=== PATIENT | female | born 1960 | race Caucasian/White ===

== ENCOUNTER → 2016-10-19 | Day surgery (SDC) | payer BC ==
[2016-10-05 09:12] VITALS: Ht 165.1 cm; Wt 76.4 kg
[~2016-10-19] VITALS: Ht 165.1 cm; Wt 76.4 kg
[~2016-10-19] MED LIST: 500ML BSS 0.3ML EPI 1:1000PF IRRIG ONE; ACETAMINOPHEN 325 MG TAB PO PRN; AMVISC PLUS 0.8ML SYRINGE INT OCU ONE; ASCA500 PO; ATOR10TA82 PO; ATROPINE SULFATE 0.1 MG/ML 5ML SYR IV PRN; BSS FLUSH ONE; CALC500C70 PO; CHOL100010 PO; CLON0.5T3 PO; ENDOCOAT 0.85ML SYRINGE INT OCU ONE; EpHEDrine SULFATE INJ 50 MG/ML AMP IV PRN; EpINEphrine INJ 1MG/ML AMP 1 MG/ML AMP ONE; FENTANYL CITRATE INJ 50 MCG/1 ML 2 ML VIAL ONE; LACTATED RINGER'S 1000ML 500 ML IV SCH; LIDOCAINE 4% OP SOLN DROP CHARGE ONE; LIDOCAINE 4% OP SOLN DROP CHARGE OPR SCH; LIDOCAINE HCL 1% MPF 2 ML VIAL ONE; LISI-461 PO; MIDAZOLAM HCL 1 MG/ML 2ML VIAL ONE; MIX: 4ML BSS 1ML EPI 1:1000 PF TOP ONE; MOXIFLOXACIN OPH SOLN PER DROP CHARGE ONE; MULT-506 PO; ONDANSETRON INJ 2 MG/ML 2 ML VIAL ONE; PANT40TA PO; POVIDONE-IODINE OP SOLN 30 ML BTL ONE; PRED1SUS OPR; PROPARACAINE 0.5% OP SOLN PER DROP CHARGE OPR SCH; RXC5 PO; TOBRAMYCIN/DEXAMETHASONE OPH OINT PER APPLN CHARGE ONE
[2016-10-19] MEDS: PHENYLEPHRINE HCL 2.5% OP SOLN PER DROP CHARGE OPR SCH ×3 (06:38→06:48)
[2016-10-19] MEDS: TROPICAMIDE 1% OP SOLN PER DROP CHARGE OPR SCH ×3 (06:39→06:49)
[2016-10-19] MEDS: CYCLOPENTOLATE HCL 1% OP SOLN PER DROP CHARGE OPR SCH ×3 (06:40→06:50)
[2016-10-19] MEDS: MOXIFLOXACIN OPH SOLN PER DROP CHARGE OPR SCH ×3 (06:41→06:51)
--- NOTE | 2016-10-19 06:43 | History & Physical Bridge - [place] ---
H&P Re-Evaluation Bridge Note: I have examined the patient, reviewed the History & Physical and in the interval since the performance of the History & Physical I have noted the following changes of clinical significance: No changes noted. Right eye cataract surgery
--- NOTE | 2016-10-19 07:29 | [facility] Post Operative Brief Note ---
Immediate Operative Summary Operative Date Oct 19, 2016. Pre-Operative Diagnosis Cataract Right Eye Post-Operative Diagnosis Same Procedure(s) Performed Right Cataract Phacoemulsification With Intraocular Lens Implant Surgeon Dr. Wilson Jack Spooler Tender Surgeon(s) None Estimated Blood Loss 0 Findings right cataract Specimens None Complication(s) None Disposition
--- NOTE | 2016-10-19 07:30 | [facility] Operative Report ---
Operative Report Date of Service Oct 19, 2016. Operative Report Phaco with monofocal IOL DATE OF OPERATION: 10/19/16 PREOPERATIVE DIAGNOSIS: Senile nuclear cataract, right eye POSTOPERATIVE DIAGNOSIS: Senile nuclear cataract, right eye PROCEDURE PERFORMED: Phacoemulsification with intraocular lens implantation, right eye SURGEON: Dr. Rogerio Wilson ANESTHESIA: Topical with 1% intracameral lidocaine and monitored anesthesia care COMPLICATIONS: None DESCRIPTION OF PROCEDURE: After positively identifying the patient both verbally and by wristband in the preoperative area, the right eye was marked as the operative eye. The patient was then brought back to the operating room by the anesthesia and nursing staff where they were given a drop of Lidocaine and betadine into the operative eye. They were then sterilely prepped and draped in the standard fashion typical for ophthalmic surgery. Steri-strips were placed along the upper eyelids to keep the lashes back, and a lid speculum was placed into the operative eye. At this point, a documented time out was performed with members of the ophthalmology, nursing, and anesthesia staffs all agreeing upon the correct patient, correct location for surgery, correct procedure, and correct type and power of intraocular lens to be implanted. The microscope was then swung into position. First, a paracentesis wound was made using a sideport blade. Then, in sequence, 1% preservative-free lidocaine followed by Endocoat viscoelastic was injected into the anterior chamber. Next , the main incision was made with a keratome blade in triplanar fashion. A sharp cystotome was introduced into the eye and used to create a tear in the anterior capsule, which was directed into a continuous curvilinear capsulorrhexis using Utrata forceps. Hydrodissection was then performed with BSS on a flat-tip cannula. Next, the phacoemulsification handpiece was introduced into the eye and used to remove the nucleus in a ryhxyj-sbz-szhnwjp fashion. This was done without complication and then the irrigation-aspiration handpiece was introduced into the eye and used to remove all remaining cortical and epinuclear material. Amvisc was then injected into the anterior chamber as well as into the capsular bag and using the lens injector system, an MX60 22.5 D lens, serial number [id number], and expiration date 06/2019 was injected into the capsular bag and rotated into the correct position. Next, the irrigation- aspiration handpiece was used to remove all remaining Amvisc. BSS was used to hydrate the main wound, and then BSS was injected into the paracentesis site to reach physiologic pressure and then the main wound was checked and found to be watertight. The patient was given drops of Vigamox and Tobradex ointment into the operative eye, and then the surrounding area was cleaned and dried. A clear plastic shield was placed over the eye and the patient was then sat up and taken from the operating room by the anesthesia staff having tolerated the procedure well and suffering no complications. DISPOSITION: The patient was returned to the recovery room in stable condition. I attest to the content of the Intraoperative Record and any orders documented therein. Any exceptions are noted below.
--- NOTE | 2016-10-19 07:31 | Discharge Instructions-SurgCtr ---
Discharge Instructions Date of Service Oct 19, 2016. Visit Reason for Visit: Cataract Right Eye Discharge Discharge Diagnosis / Problem: right cataract Discharge Goals Goal(s): Decrease discomfort, Improve function Activity Recommendations Activity Limitations: as noted below Anesthesia . Post Anesthesia Instructions: If you have had General Anesthesia or IV Sedation: * Do not drive today. * Resume driving when surgeon permits. * Do not make important decisions or sign legal documents today. * Call surgeon for: 1. Temperature elevations greater than 101 degrees F. 2. Uncontrollable pain. 3. Excessive bleeding. 4. Persistent nausea and vomiting. 5. Medication intolerance (nausea, vomiting or rash). * For nausea and vomiting use only clear liquids such as: tea, soda, bouillon until nausea subsides, then gradually increase diet as tolerated. * If you have any concerns or questions, call your surgeon's office. If physician is unavailable and it is an emergency, call 911 or go to the nearest emergency room. . Instructions / Follow-Up Instructions / Follow-Up ACTIVITY RECOMMENDATIONS: * Light activities. * You may walk outside, read, watch television. * You may notice redness on the white part of the eye and some blurry vision - this is normal. MEDICATIONS: Resume previous medications unless instructed otherwise by your surgeon. Start all eye drops at 9:30 am today: * Eye drops (today): Prednisone - one drop in operative eye every 2 hours while awake Ofloxacin - one drop in operative eye every 2 hours while awake SPECIAL CARE INSTRUCTIONS: * Tape plastic shield over eye to sleep at night. Call your doctor at with any concerns or problems. FOLLOW UP VISIT: Follow-up with Dr Wilson at [facility] as scheduled. Diet Recommendations Home Diet: no limitations Procedures Procedures Performed: Right Cataract Phacoemulsification With Intraocular Lens Implant Pending Studies Studies pending at discharge: no Medical Emergencies . Who to Call and When: Medical Emergencies: If at any time you feel your situation is an emergency, please call 911 immediately. . Non-Emergent Contact Non-Emergency issues call your: Surgeon . . "Provider Documentation" section prepared by Rogerio Wilson.
[2016-10-19 07:34] VITALS: TEMP 37.2
[2016-10-19 07:51] VITALS: BP 124/82; PULSE 75; O2SAT 99
--- NOTE | 2016-10-19 08:00 | Anesthesiology Progress Note ---
Anesthesia Post Op Note Date & Time Oct 19, 2016 at 08:00 Vital Signs Pain Intensity: 1 Vital Signs Past 12 Hours Date Time Temp Pulse Resp B/P Pulse Ox O2 Delivery O2 Flow Rate FiO2 10/19/16 07:51 75 16 124/82 99 Room Air 10/19/16 07:34 37.2 89 14 134/75 98 Room Air 10/19/16 06:28 36.7 76 16 118/82 98 Room Air Notes Mental Status: alert / awake / arousable, participated in evaluation Pt Amnestic to Procedure: Yes Nausea / Vomiting: adequately controlled Pain: adequately controlled Airway Patency, RR, SpO2: stable & adequate BP & HR: stable & adequate Hydration State: stable & adequate Anesthetic Complications: no major complications apparent
== END | disposition home or self-care (01) ==
LOC: X.SURG 06:05
PROVIDERS: ATTEND Ophthalmology
DX: H25.11 Age-related nuclear cataract, right eye (principal); E78.00 Pure hypercholesterolemia, unspecified; I10 Essential (primary) hypertension; Z90.710 Acquired absence of both cervix and uterus; Z87.891 Personal history of nicotine dependence

== ENCOUNTER → 2016-11-02 | Day surgery (SDC) | payer BC ==
[2016-10-27 12:20] VITALS: Ht 165.1 cm; Wt 76.4 kg
[~2016-11-02] VITALS: Ht 165.1 cm; Wt 76.4 kg
[~2016-11-02] MED LIST changes: -EpHEDrine SULFATE INJ 50 MG/ML AMP IV PRN; +LIDOCAINE 4% OP SOLN DROP CHARGE OPL SCH; -LIDOCAINE 4% OP SOLN DROP CHARGE OPR SCH; -ONDANSETRON INJ 2 MG/ML 2 ML VIAL ONE; +PROPARACAINE 0.5% OP SOLN PER DROP CHARGE OPL SCH; -PROPARACAINE 0.5% OP SOLN PER DROP CHARGE OPR SCH
[2016-11-02] MEDS: PHENYLEPHRINE HCL 2.5% OP SOLN PER DROP CHARGE OPL SCH ×3 (06:31→06:41)
[2016-11-02] MEDS: TROPICAMIDE 1% OP SOLN PER DROP CHARGE OPL SCH ×3 (06:32→06:42)
[2016-11-02] MEDS: MOXIFLOXACIN OPH SOLN PER DROP CHARGE OPL SCH ×3 (06:34→06:44)
[2016-11-02] MEDS: CYCLOPENTOLATE HCL 1% OP SOLN PER DROP CHARGE OPL SCH ×3 (06:34→06:44)
--- NOTE | 2016-11-02 06:40 | History & Physical Bridge - [place] ---
H&P Re-Evaluation Bridge Note: I have examined the patient, reviewed the History & Physical and in the interval since the performance of the History & Physical I have noted the following changes of clinical significance: No changes noted. Left eye cataract surgery.
--- NOTE | 2016-11-02 07:24 | [facility] Post Operative Brief Note ---
Immediate Operative Summary Operative Date November 02, 2016. Pre-Operative Diagnosis Left Eye Cataract Post-Operative Diagnosis Same Procedure(s) Performed Left Cataract Phacoemulsification With Intraocular Lens implant Surgeon Dr Wilson Denture Contour Wire Specialist Surgeon(s) None Estimated Blood Loss 0ml Findings left cataract Specimens None Complication(s) None Disposition
[2016-11-02 07:25] VITALS: TEMP 36.7
--- NOTE | 2016-11-02 07:25 | [facility] Operative Report ---
Operative Report Date of Service November 02, 2016. Operative Report Phaco with monofocal IOL DATE OF OPERATION: 11/02/16 PREOPERATIVE DIAGNOSIS: Senile nuclear cataract, left eye POSTOPERATIVE DIAGNOSIS: Senile nuclear cataract, left eye PROCEDURE PERFORMED: Phacoemulsification with intraocular lens implantation, left eye SURGEON: Dr. Rogerio Wilson ANESTHESIA: Topical with 1% intracameral lidocaine and monitored anesthesia care COMPLICATIONS: None DESCRIPTION OF PROCEDURE: After positively identifying the patient both verbally and by wristband in the preoperative area, the left eye was marked as the operative eye. The patient was then brought back to the operating room by the anesthesia and nursing staff where they were given a drop of Lidocaine and betadine into the operative eye. They were then sterilely prepped and draped in the standard fashion typical for ophthalmic surgery. Steri-strips were placed along the upper eyelids to keep the lashes back, and a lid speculum was placed into the operative eye. At this point, a documented time out was performed with members of the ophthalmology, nursing, and anesthesia staffs all agreeing upon the correct patient, correct location for surgery, correct procedure, and correct type and power of intraocular lens to be implanted. The microscope was then swung into position. First, a paracentesis wound was made using a sideport blade. Then, in sequence, 1% preservative-free lidocaine followed by Endocoat viscoelastic was injected into the anterior chamber. Next , the main incision was made with a keratome blade in triplanar fashion. A sharp cystotome was introduced into the eye and used to create a tear in the anterior capsule, which was directed into a continuous curvilinear capsulorrhexis using Utrata forceps. Hydrodissection was then performed with BSS on a flat-tip cannula. Next, the phacoemulsification handpiece was introduced into the eye and used to remove the nucleus in a gbynma-njz-dwschkx fashion. This was done without complication and then the irrigation-aspiration handpiece was introduced into the eye and used to remove all remaining cortical and epinuclear material. Amvisc was then injected into the anterior chamber as well as into the capsular bag and using the lens injector system, an MX60 22.0 D lens, serial number [id number], and expiration date 05/2019 was injected into the capsular bag and rotated into the correct position. Next, the irrigation- aspiration handpiece was used to remove all remaining Amvisc. BSS was used to hydrate the main wound, and then BSS was injected into the paracentesis site to reach physiologic pressure and then the main wound was checked and found to be watertight. The patient was given drops of Vigamox and Tobradex ointment into the operative eye, and then the surrounding area was cleaned and dried. A clear plastic shield was placed over the eye and the patient was then sat up and taken from the operating room by the anesthesia staff having tolerated the procedure well and suffering no complications. DISPOSITION: The patient was returned to the recovery room in stable condition. I attest to the content of the Intraoperative Record and any orders documented therein. Any exceptions are noted below.
--- NOTE | 2016-11-02 07:26 | Discharge Instructions-SurgCtr ---
Discharge Instructions Date of Service November 02, 2016. Visit Reason for Visit: Left Cataract Discharge Discharge Diagnosis / Problem: left cataract Discharge Goals Goal(s): Decrease discomfort, Improve function Activity Recommendations Activity Limitations: as noted below Anesthesia . Post Anesthesia Instructions: If you have had General Anesthesia or IV Sedation: * Do not drive today. * Resume driving when surgeon permits. * Do not make important decisions or sign legal documents today. * Call surgeon for: 1. Temperature elevations greater than 101 degrees F. 2. Uncontrollable pain. 3. Excessive bleeding. 4. Persistent nausea and vomiting. 5. Medication intolerance (nausea, vomiting or rash). * For nausea and vomiting use only clear liquids such as: tea, soda, bouillon until nausea subsides, then gradually increase diet as tolerated. * If you have any concerns or questions, call your surgeon's office. If physician is unavailable and it is an emergency, call 911 or go to the nearest emergency room. . Instructions / Follow-Up Instructions / Follow-Up ACTIVITY RECOMMENDATIONS: * Light activities. * You may walk outside, read, watch television. * You may notice redness on the white part of the eye and some blurry vision - this is normal. MEDICATIONS: Resume previous medications unless instructed otherwise by your surgeon. Start all eye drops at 9:30 am today: * Eye drops (today): Prednisone - one drop in operative eye every 2 hours while awake Ofloxacin - one drop in operative eye every 2 hours while awake SPECIAL CARE INSTRUCTIONS: * Tape plastic shield over eye to sleep at night. Call your doctor at with any concerns or problems. FOLLOW UP VISIT: Follow-up with Dr Wilson at [facility] office as scheduled. Diet Recommendations Home Diet: no limitations Procedures Procedures Performed: Left Cataract Phacoemulsification With Intraocular Lens implant Pending Studies Studies pending at discharge: no Medical Emergencies . Who to Call and When: Medical Emergencies: If at any time you feel your situation is an emergency, please call 911 immediately. . Non-Emergent Contact Non-Emergency issues call your: Surgeon . . "Provider Documentation" section prepared by Rogerio Wilson. .
[2016-11-02 07:41] VITALS: BP 110/73; PULSE 78; O2SAT 99
--- NOTE | 2016-11-02 07:44 | Anesthesia Progress Nt - [facility] ---
Anesthesia Post Op Note Date & Time November 02, 2016 at 07:44 Vital Signs Pain Intensity: 0 Vital Signs Past 12 Hours Date Time Temp Pulse Resp B/P Pulse Ox O2 Delivery O2 Flow Rate FiO2 11/02/16 07:41 78 16 110/73 99 Room Air 11/02/16 07:25 36.7 85 14 124/73 99 Room Air 11/02/16 06:24 36.5 77 20 121/84 97 Room Air Notes Mental Status: alert / awake / arousable, participated in evaluation Pt Amnestic to Procedure: Yes Nausea / Vomiting: adequately controlled Pain: adequately controlled Airway Patency, RR, SpO2: stable & adequate BP & HR: stable & adequate Hydration State: stable & adequate Anesthetic Complications: no major complications apparent
== END | disposition home or self-care (01) ==
LOC: X.SURG 06:08
PROVIDERS: ATTEND Ophthalmology
DX: H25.12 Age-related nuclear cataract, left eye (principal); I10 Essential (primary) hypertension; Z88.1 Allergy status to other antibiotic agents; Z90.89 Acquired absence of other organs; Z98.890 Other specified postprocedural states; Z87.891 Personal history of nicotine dependence

== ENCOUNTER 2016-12-09 05:55 | Inpatient (IN) | payer BC ==
[2016-11-15 10:21] VITALS: BMI 29.0
--- NOTE | 2016-11-15 10:56 | PAT Medication Instructions ---
Service Date November 15, 2016. Current Home Medication List Ascorbic Acid (Vitamin C), 1 TAB PO QAM Atorvastatin (Lipitor), 10 MG PO QPM Calcium/Vitamin D (Os-Johan 500 Plus D), 1 TAB PO QAM Cholecalciferol (Vitamin D), 1,000 INTER.UNIT PO QAM Clonazepam (Klonopin), 0.5 TAB PO HS Lisinopril (Zestril), 10 MG PO QAM Pantoprazole (Protonix), 40 MG PO QAM Prednisolone Acetate (Ophth) (Omnipred), 1 DROPS OPR TID Medication Instructions For Your Scheduled Surgery - Hold the following medications the morning of surgery: Lisinopril (Zestril), 10 MG PO QAM Calcium/Vitamin D (Os-Johan 500 Plus D), 1 TAB PO QAM Cholecalciferol (Vitamin D), 1,000 INTER.UNIT PO QAM Ascorbic Acid (Vitamin C), 1 TAB PO QAM - Take the following medications the morning of surgery with a sip of water: Prednisolone Acetate (Ophth) (Omnipred), 1 DROPS OPR TID Pantoprazole (Protonix), 40 MG PO QAM - Take the following medications as scheduled the night before surgery: Prednisolone Acetate (Ophth) (Omnipred), 1 DROPS OPR TID Clonazepam (Klonopin), 0.5 TAB PO HS Atorvastatin (Lipitor), 10 MG PO QPM If you have any questions please call us at [phone] (Yesenia Young PA-C) or [phone] or [phone]
--- NOTE | 2016-11-15 11:30 | DIAGNOSTIC IMAGING REPORT ---
CHEST PREADMISSION(PA/LAT) CLINICAL HISTORY: PAT preoperative evaluation COMPARISON STUDY: No previous studies for comparison. FINDINGS: The bones soft tissues and hemidiaphragms are normal. The cardiomediastinal silhouette is normal. The lungs are clear. The pulmonary vasculature is normal. IMPRESSION: Negative chest. Electronically signed by: Leo Sierra M.D. 11/15/2016 11:28 AM Dictated Date/Time: 11/15/2016 11:28 AM
[2016-11-15 11:39] LABS: BASO % 0.8 %; BASO ABS # 0.05 K/uL (0-0.2); COMPLETE YES; EOS % 1.4 %; HEMATOCRIT 41.3 % (37-47); IG% 0.3 %; LYMPH % 34.1 %; LYMPH ABS # 2.19 K/uL (1.2-3.4); MEAN CELL VOLUME 92.2 fL (80-100); MEAN CORPUSCULAR HEMOGLOBIN 30.1 pg (25-34); MEAN CORPUSCULAR HGB CONC 32.7 g/dl (32-36); MEAN PLATELET VOLUME 10.6 fL (7.4-10.4); MONO % 6.4 %; PLATELET COUNT 260 K/uL (130-400); RED BLOOD COUNT 4.48 M/uL (4.2-5.4); WHITE BLOOD COUNT 6.42 K/uL (4.8-10.8)
[2016-11-15 11:47] LABS: BUN/CREATININE RATIO 26.3 (10-20); CREATININE 0.63 mg/dl (0.60-1.20); POTASSIUM 4.4 mmol/L (3.5-5.1)
[2016-11-15 11:48] LABS: CALCIUM 9.4 mg/dl (8.5-10.1)
[2016-11-15 12:03] LABS: URINE APPEARANCE CLEAR (CLEAR); URINE BILIRUBIN NEG (NEG); URINE COLOR YELLOW; URINE NITRITE NEG (NEG); UROBILINOGEN NEG (NEG)
[2016-11-15 12:10] LABS: MANUAL MICROSCOPIC REQUIRED? NO; REVIEW REQ? NO
[2016-12-09] VITALS (13 sets, daily range): BP systolic 126–157; BP diastolic 81–95; PULSE 76–103; TEMP 36.4–36.8; O2SAT 96–99; Ht 165.1 cm; Wt 81.6 kg
[~2016-12-09] VITALS: Ht 165.1 cm; Wt 81.6 kg
[~2016-12-09 05:55] MED LIST changes: -500ML BSS 0.3ML EPI 1:1000PF IRRIG ONE; -ACETAMINOPHEN 325 MG TAB PO PRN; -AMVISC PLUS 0.8ML SYRINGE INT OCU ONE; -ATROPINE SULFATE 0.1 MG/ML 5ML SYR IV PRN; -BSS FLUSH ONE; -ENDOCOAT 0.85ML SYRINGE INT OCU ONE; -EpINEphrine INJ 1MG/ML AMP 1 MG/ML AMP ONE; -FENTANYL CITRATE INJ 50 MCG/1 ML 2 ML VIAL ONE; -LACTATED RINGER'S 1000ML 500 ML IV SCH; -LIDOCAINE 4% OP SOLN DROP CHARGE ONE; -LIDOCAINE 4% OP SOLN DROP CHARGE OPL SCH; -LIDOCAINE HCL 1% MPF 2 ML VIAL ONE; -MIDAZOLAM HCL 1 MG/ML 2ML VIAL ONE; -MIX: 4ML BSS 1ML EPI 1:1000 PF TOP ONE; -MOXIFLOXACIN OPH SOLN PER DROP CHARGE ONE; -MULT-506 PO; -POVIDONE-IODINE OP SOLN 30 ML BTL ONE; -PROPARACAINE 0.5% OP SOLN PER DROP CHARGE OPL SCH; -RXC5 PO; -TOBRAMYCIN/DEXAMETHASONE OPH OINT PER APPLN CHARGE ONE
[2016-12-09] MEDS ORDERED: CEFAZOLIN 2000 MG/60 ML D5W IV SCH (06:00)
[2016-12-09] MEDS ORDERED: LACTATED RINGER'S 1000ML 1,000 ML IV SCH (06:00)
[2016-12-09] MEDS ORDERED: MULT-506 PO (06:22)
[2016-12-09] MEDS ORDERED: MIDAZOLAM HCL 1 MG/ML 2ML VIAL ONE (06:36)
[2016-12-09] MEDS ORDERED: FENTANYL CITRATE INJ 50 MCG/1 ML 2 ML VIAL ONE ×3 (06:36→09:24)
[2016-12-09] MEDS ORDERED: BACITRACIN 50000 UNIT VIAL ONE (07:11)
--- NOTE | 2016-12-09 07:14 | History & Physical Bridge Note ---
H&P Re-Evaluation Bridge Note: I have examined the patient, reviewed the History & Physical and in the interval since the performance of the History & Physical I have noted the following changes of clinical significance: No changes noted
--- NOTE | 2016-12-09 07:15 | History and Physical ---
History & Physical Date Dec 09, 2016. Chief Complaint neck and arm pain History of Present Illness The patient is a 56 year old female with complaints of Additional History Hepatic Disease: No Endocrine Disorder: No Kidney Disease: No Hypertension: No Heart Disease: No Bleeding Tendencies: No Infectious Diseases: No Allergies Coded Allergies: Terconazole (Unverified Allergy, Unknown, rash, 12/09/16) PER RECORDS Ampicillin (Verified Adverse Reaction, Mild, GI SYMPTOMS vomiting, ) Hydrocodone (Verified Adverse Reaction, Mild, SEVERE NAUSEA AND VOMITING, 12/09/16) PT STATES SHE DOES TOLERATE OXYCODONE Home Medications Scheduled Ascorbic Acid (Vitamin C), 1 TAB PO QAM Atorvastatin (Lipitor), 10 MG PO QPM Cholecalciferol (Vitamin D), 1,000 INTER.UNIT PO QAM Clonazepam (Klonopin), 0.5 TAB PO HS Lisinopril (Zestril), 10 MG PO QAM Multivitamin (Multivitamin), 1 TAB PO DAILY Pantoprazole (Protonix), 40 MG PO QAM Physical Examination Skin: warm/dry, no rash Eyes: normal inspection, EOMI, sclerae normal ENT: normal ENT inspection, pharynx normal Head: normocephalic, atraumatic Neck: supple, no adenopathy, trachea midline Respiratory/Chest: lungs clear, normal breath sounds, no respiratory distress Cardiovascular: regular rate, rhythm, no edema, no murmur Abdomen / GI: normal bowel sounds, non tender Back: normal inspection Extremities: normal inspection, normal range of motion Neurologic/Psych: no motor/sensory deficits, alert, normal reflexes, oriented x 3 Diagnosis cervical stenosis Plan of Treatment corpectomy C5 acdf C6-7
[2016-12-09] MEDS ORDERED: ACETAMINOPHEN 1000 MG/100 ML IV IV ONE (07:46)
[2016-12-09] MEDS ORDERED: KETAMINE HCL INJ 50 MG/ML 10 ML VIAL ONE (08:03)
[2016-12-09] MEDS ORDERED: HYDROmorphone INJ 2 MG/ML SYR/VIAL ONE (08:03)
[2016-12-09] MEDS ORDERED: METOCLOPRAMIDE HCL INJ 5 MG/ML 2 ML VIAL ONE (08:06)
[2016-12-09] MEDS ORDERED: GLYCOPYRROLATE INJ 0.2 MG/ML VIAL ONE (08:06)
[2016-12-09] MEDS ORDERED: ONDANSETRON INJ 2 MG/ML 2 ML VIAL ONE (08:06)
[2016-12-09] MEDS ORDERED: ROCURONIUM BROMIDE 10 MG/ML 5 ML VIAL ONE (08:06)
[2016-12-09] MEDS ORDERED: NEOSTIGMINE METHYLSULFATE 1 MG/ML 10ML VIAL ONE (08:06)
[2016-12-09] MEDS ORDERED: PROPOFOL IV EMULSION 10 MG/ML 20 ML VIAL IV ONE (08:06)
[2016-12-09] MEDS ORDERED: DiphenhydrAMINE HCL 50 MG/ML VIAL ONE (08:06)
[2016-12-09] MEDS ORDERED: RANITIDINE HCL 25 MG/ML INJ ONE (08:06)
[2016-12-09] MEDS ORDERED: DEXAMETHASONE SOD INJ 4 MG/ML VIAL ONE (08:06)
[2016-12-09] MEDS ORDERED: LIDOCAINE HCL 2% 2 ML VIAL (20MG/ML) ONE (08:06)
[2016-12-09] MEDS ORDERED: PHENYLEPHRINE 100MCG/ML 5ML SYR ONE (08:08)
[2016-12-09] MEDS ORDERED: EpHEDrine SULFATE INJ 50 MG/ML AMP IV PRN (08:15)
[2016-12-09] MEDS ORDERED: PROMETHAZINE HCL INJ 6.25 MG in SODIUM CHLORIDE 0.9% 50ML 50 ML IV PRN (08:15)
[2016-12-09] MEDS ORDERED: HYDROmorphone INJ 1 MG/ML SYR IV PRN ×2 (08:15→09:30)
[2016-12-09] MEDS ORDERED: METOCLOPRAMIDE HCL INJ 5 MG/ML 2 ML VIAL IV PRN (08:15)
[2016-12-09] MEDS ORDERED: ATROPINE SULFATE 0.1 MG/ML 5ML SYR IV PRN (08:15)
[2016-12-09] MEDS ORDERED: ONDANSETRON INJ 2 MG/ML 2 ML VIAL IV PRN (08:15)
[2016-12-09] MEDS ORDERED: SODIUM CHLORIDE 0.9% PF 50 ML VIAL ONE (08:29)
[2016-12-09] MEDS ORDERED: FLOSEAL HEMOSTATIC MATRIX 5ML TOP ONE (09:26)
--- NOTE | 2016-12-09 09:27 | [facility] Post Operative Brief Note ---
Immediate Operative Summary Operative Date Dec 09, 2016. Pre-Operative Diagnosis Cervical Spinal Stenosis Post-Operative Diagnosis Cervical Spinal Stenosis Procedure(s) Performed cervical fusion Surgeon Dr. Martin Tile Setter Apprentice Surgeon(s) Angel Davis PA-C Estimated Blood Loss 75ml Findings stenosis Specimens none per surgeon
[2016-12-09] MEDS ORDERED: ACETAMINOPHEN IV 1,000 MG in EMPTY BAG 0 ML IV PRN (09:30)
[2016-12-09] MEDS ORDERED: DO NOT ADMINISTER FLU VACCINE PRN ×3 (09:30)
[2016-12-09] MEDS ORDERED: NALOXONE HCL 0.4 MG/1 ML VIAL/CARP IV PRN (09:30)
[2016-12-09] MEDS ORDERED: DEXAMETHASONE INJ 8 MG in SYRINGE 0 ML IV PRN (09:30)
[2016-12-09] MEDS ORDERED: MAGNESIUM HYDROXIDE SUSP 30 ML UDC PO PRN (09:30)
[2016-12-09] MEDS ORDERED: RACEPINEPHRINE 2.25% NEBU SOLN 0.5 ML VIAL INH PRN (09:30)
[2016-12-09] MEDS ORDERED: LORAZEPAM INJ 0.5 MG in SYRINGE 0.75 ML IV PRN (09:30)
[2016-12-09] MEDS ORDERED: DO NOT ADMINISTER PNEUMOCOCCAL VACCINE PRN ×2 (09:30)
[2016-12-09] MEDS ORDERED: LORAZEPAM 0.5 MG TAB PO PRN (09:30)
[2016-12-09] MEDS ORDERED: DiphenhydrAMINE HCL 50 MG/ML VIAL IV PRN (09:30)
[2016-12-09] MEDS: FENTANYL CITRATE INJ 50 MCG/1 ML 2 ML VIAL IV PRN ×2 (09:50→09:55)
--- NOTE | 2016-12-09 10:31 | DIAGNOSTIC IMAGING REPORT ---
CERVICAL 2 OR 3 VIEWS CLINICAL HISTORY: C5 Corpectomy; C6-C7 ACDF COMPARISON STUDY: No previous studies for comparison. Fluoroscopy time: 14.2 seconds. FINDINGS: These images demonstrate a C5 corpectomy with anterior discectomy and fusion at C6-C7. There are 2 screws within the C4, C6 and C7 vertebra. IMPRESSION: Fluoroscopic images demonstrating a C5 corpectomy with C6-C7 discectomy and C4-C7 anterior fusion. Electronically signed by: Shaheen Elam M.D. 12/09/2016 10:29 AM Dictated Date/Time: 12/09/2016 10:28 AM
--- NOTE | 2016-12-09 10:54 | Anesthesiology Progress Note ---
Anesthesia Post Op Note Date & Time Dec 09, 2016 at 10:54 Vital Signs Pain Intensity: 2 Vital Signs Past 12 Hours Date Time Temp Pulse Resp B/P (MAP) Pulse Ox O2 Delivery O2 Flow Rate FiO2 12/09/16 10:33 104 16 12/09/16 10:33 106 16 99 12/09/16 10:32 154/83 12/09/16 10:28 101 14 99 12/09/16 10:28 102 14 12/09/16 10:27 152/78 12/09/16 10:23 93 13 12/09/16 10:23 93 13 98 12/09/16 10:22 151/98 12/09/16 10:18 102 14 98 12/09/16 10:18 105 14 12/09/16 10:17 151/86 12/09/16 10:15 99 14 12/09/16 10:15 98 14 98 12/09/16 10:12 144/91 12/09/16 10:10 107 16 98 12/09/16 10:10 106 16 12/09/16 10:10 Nasal Cannula 3 12/09/16 10:07 169/84 12/09/16 10:05 106 16 12/09/16 10:05 106 16 99 12/09/16 10:02 145/82 12/09/16 10:01 141/81 12/09/16 10:00 93 14 99 12/09/16 10:00 97 14 12/09/16 10:00 97 16 145/82 99 Mask 5 12/09/16 09:50 96 16 166/84 100 Mask 10 12/09/16 09:40 36.2 93 16 156/91 97 Mask 10 12/09/16 06:22 36.8 76 18 154/94 96 Room Air Notes Mental Status: alert / awake / arousable, participated in evaluation Pt Amnestic to Procedure: Yes Nausea / Vomiting: adequately controlled Pain: adequately controlled Airway Patency, RR, SpO2: stable & adequate BP & HR: stable & adequate Hydration State: stable & adequate Anesthetic Complications: no major complications apparent
[2016-12-09] MEDS: SODIUM CHLORIDE 0.9% 1000ML 1,000 ML IV SCH (11:54)
[2016-12-09] MEDS ORDERED: SCOPOLAMINE 1.5 MG TDSY TD SCH (12:00)
[2016-12-09] MEDS ORDERED: RXC5 PO (13:04)
--- NOTE | 2016-12-09 13:05 | Discharge Instructions ---
Discharge Instructions Date of Service Dec 09, 2016. Admission Reason for Admission: Cervical Spinal Stenosis Discharge Discharge Diagnosis / Problem: stenosis Discharge Goals Goal(s): Improve function Activity Recommendations Activity Limitations: per Instructions/Follow-up section . Instructions / Follow-Up Instructions / Follow-Up ACTIVITY RECOMMENDATIONS: SELF CARE INSTRUCTIONS AFTER CERVICAL FUSIONS 1. No smoking. Smoking drastically decreases the chance of a solid fusion. 2. No bending, lifting more than 5 pounds, or twisting (roll like a log when turning in bed). 3. You may shower 3 days after surgery. Thoroughly dry wound. Do not soak in the tub. 4. Cervical collar: Must be worn at all times including sleeping. You may remove the brace only to bath, eat and if you are sitting in a recliner. 5. Please walk as much as you can for exercise. Gradually increase the distance that you walk as your endurance increases. SPECIAL CARE INSTRUCTIONS: VERY IMPORTANT TO READ AND REVIEW A. Do not take any anti-inflammatory medications (i.e. Indocin, Advil, Aspirin, Naprosyn, Aleve, Motrin, etc.) as these may inhibit the chance of a solid fusion. Tylenol is okay to take. B. Your surgical incision has been closed with a cosmetic suture under the skin that will dissolve in about 6 weeks. In 14 days, you can use a pair of clean scissors and cut the suture that is left outside of the skin at the ends of your incision. C. Complications are uncommon, but please contact us if you have any signs or symptoms of: 1. wound infection (fever higher than 102.5 degrees F, redness, separation of wound, drainage, or increasing pain from the incision) 2. blood clots in legs (pain, swelling, redness and warmth in legs) 3. urinary tract infection (fever higher than 102.5 degrees, burning upon urination or increased frequency of urination) 4. nerve problems (inability to walk on your toes or heels, numbness, loss of bowel or bladder control) 5. any other symptoms that concern you. D. Please call the office at if you have any concerns or questions about your operation or recovery. MANAGING PAIN AFTER SPINAL SURGERY 1. Narcotic medication is intended for short-term use and will be provided for surgical pain. Surgical pain usually lasts for a period of 4-6 weeks. Narcotic medication includes Percocet, Vicodin, Darvocet, Tylenol #3 or Lortab. 2. Longer-term pain is more appropriately treated with non-narcotic medication such as Tylenol ES. 3. Muscle spasm is not appropriately treated with narcotics. Muscle relaxers such as Soma, Flexeril or Skelaxin can be used along with Tylenol ES. 4. Remember that we all live with some "aches and pains". This is not unusual or uncommon after an injury or as we get older. 5. We will provide appropriate medication within the normal guidelines of their prescribed use. We will also be very cautious and aware of potential abuse and extended duration of patients' medication needs. 6. Please allow 2-3 days to process refills. Prescriptions will not be mailed but must be picked up at the office. FOLLOW UP VISIT: Keep your scheduled follow-up appointment. Any questions, please call the office at . Current Hospital Diet Patient's current hospital diet: Clear Liquid Diet Discharge Diet Recommended Diet: Regular Diet Procedures Procedures Performed: C5 Corpectomy, with C6-C7 Anterior Cervical Discectomy and Fusion; Placement of Prosthetic Spacer; Application of Allograft, Anterior Plate and Screw Fixation Pending Studies Studies pending at discharge: no Medical Emergencies . Who to Call and When: Medical Emergencies: If at any time you feel your situation is an emergency, please call 911 immediately. . Non-Emergent Contact Non-Emergency issues call your: Primary Care Provider . "Provider Documentation" section prepared by Adelso Martin. . VTE Core Measure Inpt VTE Proph given/why not?: Janet Calvo, SCD's
[2016-12-09] MEDS: OXYCODONE HCL IR 5 MG TAB (IMMEDIATE RELEASE) PO PRN ×4 (14:21→22:34)
--- NOTE | 2016-12-09 14:47 | OPERATIVE REPORT ---
DATE OF OPERATION: 12/09/2016 PREOPERATIVE DIAGNOSIS: Cervical spondylosis with myeloradiculopathy. POSTOPERATIVE DIAGNOSES: Same. PROCEDURES PERFORMED: 1. Anterior cervical corpectomy C5. 2. Anterior cervical discectomy C6-C7. 3. Anterior cervical arthrodesis C4-C6, and C6-C7. 4. Placement of PEEK cage 23 mm in height at C4-C6, 8 mm in height at C6-C7. 5. Application of Knapp plate and screws from C4-C7. 6. Placement of locally harvested morcellized autograft combined with Maddy bone graft in interbody spaces. SURGEON: Dr. Adelso Martin. MOTION PICTURE PROJECTIONIST APPRENTICE: Godwin Davis. Due to the complex nature of the procedure, the entire surgery was performed with the printer's assistant of LARA Knapp. The medical office assistant instructor, under direct supervision, was involved in the actual performance of all aspects of the surgical procedure including hemostasis, tissue retraction and incision, instrument management, patient positioning, and wound closure. ANESTHESIA: General. DISPOSITION: The patient was awakened and taken to PACU in stable condition. HISTORY Of PATIENT'S PROBLEMS: This is a 56-year-old female that presents with above-mentioned diagnosis. After failing an extensive course of nonoperative care, elected to undergo the above-mentioned procedure. Risks, benefits, pros, cons, and alternatives were outlined in detail preoperatively. DESCRIPTION OF PROCEDURE: The patient was met with preoperatively, the case discussed and all questions were addressed. At that point the patient was taken back to the operative suite and after undergoing successful general intubation via the department of anesthesia was placed in the supine position on Collins table with head in [place] head swamper. All bony prominences were well padded and the eyes were inspected to ensure there was no external pressure placed upon them. At this point the anterior cervical spine was prepped and draped in normal sterile fashion. With the assistance of fluoroscopy, we identified the C5-C6 disc space and transverse incision was placed along the right anterior aspect of the cervical spine overlying this region. Sharp dissection with the assistance of bipolar electrocautery performed down to and exposing the anterior cervical spine from C4-C7. A self-retaining retraction was placed. I then performed a complete discectomy of C4-C5 out to the uncovertebral joints bilaterally followed by C5-C6. [place] distracting pins were then placed in C4 and C6 to distract across the C5 vertebral body. A complete corpectomy was then performed including removal of all posterior annular fibers, longitudinal ligaments and bilateral foraminotomies. Endplates were then burred to subcortical bleeding bone and a 23 mm PEEK cage filled with Maddy bone grafting and locally harvested morselized autograft tapped into position. Distracting apparatus was removed and we proceeded caudally to C6-C7. Again, a complete discectomy was performed out to the uncovertebral joints bilaterally. [place] distracting pins again utilized to assist us in our visualization. A complete discectomy was performed out to the uncovertebral joints bilaterally including removal of all posterior annular fibers, longitudinal ligament for bilateral foraminotomies. Endplates were then burred to subcortical bleeding bone and 8 mm PEEK cage filled with Maddy bone grafting and locally harvested morcellized autograft tapped into position. Distracting apparatus was removed. All anterior osteophytes burred to a smooth cortical surface and a Knapp plate and screws applied with the assistance of fluoroscopy. Incision was then copiously irrigated, explored to ensure there was no damage to surrounding structures or remaining bleeding. A #10 round KARL drain inserted, then closed with 2-0 Vicryl in the fascia, 4-0 Monocryl for final skin closure. Steri-Strips and sterile dressing placed. The patient was awakened and taken to PACU in stable condition. I attest to the content of the Intraoperative Record and any orders documented therein. Any exception s are noted below.
[2016-12-09] MEDS: CHECK SCOPOLAMINE PATCH PLACEMENT SCH (16:00)
[2016-12-09] MEDS: DEXAMETHASONE INJ 6 MG in SYRINGE 0 ML IV SCH (16:31)
[2016-12-09] MEDS: CEFAZOLIN IV 2,000 MG in DEXTROSE 5% 50ML 50 ML IV SCH (16:31)
[2016-12-09] MEDS: ONDANSETRON INJ 2 MG/ML 2 ML VIAL IV PRN (18:34)
[2016-12-09] MEDS: DOCUSATE SODIUM 100 MG CAP PO SCH (20:23)
[2016-12-10] VITALS (12 sets, daily range): BP systolic 139–163; BP diastolic 81–96; PULSE 74–161; TEMP 36.5–36.8; O2SAT 94–97
[2016-12-10] MEDS: SODIUM CHLORIDE 0.9% 1000ML 1,000 ML IV SCH (00:19)
[2016-12-10] MEDS: DEXAMETHASONE INJ 6 MG in SYRINGE 0 ML IV SCH ×2 (00:19→09:01)
[2016-12-10] MEDS: ONDANSETRON INJ 2 MG/ML 2 ML VIAL IV PRN ×2 (00:19→09:02)
[2016-12-10] MEDS: CEFAZOLIN IV 2,000 MG in DEXTROSE 5% 50ML 50 ML IV SCH ×2 (00:20→09:37)
[2016-12-10] MEDS: OXYCODONE HCL IR 5 MG TAB (IMMEDIATE RELEASE) PO PRN ×3 (04:34→11:38)
[2016-12-10] MEDS: DOCUSATE SODIUM 100 MG CAP PO SCH (09:00)
[2016-12-10] MEDS: CHECK SCOPOLAMINE PATCH PLACEMENT SCH ×2 (09:40)
--- NOTE | 2016-12-10 10:17 | DISCHARGE SUMMARY ---
DATE OF DISCHARGE: 12/10/2016. PRINCIPAL DIAGNOSIS: Cervical spondylosis with myeloradiculopathy. HOSPITAL COURSE FOLLOWS: On December 09 the patient underwent anterior cervical decompression and fusion, tolerated this well and taken to the orthopedic floor postoperatively. Postop day #1, she was swallowing well, no hoarseness, pain improved, subsequently discharged home. Discharge orders and instructions can be found on the chart for further review.
[2016-12-11] MEDS ORDERED: BISACODYL 5 MG TABEC PO PRN (06:00)
[2016-12-11] MEDS ORDERED: BISACODYL 10 MG SUPP PR PRN (06:00)
[2016-12-11] MEDS ORDERED: POLYETHYLENE (MIRALAX) 17 GM PACK PO SCH (09:00)
== END 2016-12-10 12:45 | disposition home or self-care (01) | DRG 473 ==
LOC: C.ACU 05:55 → C.3E 07:15 → ENRESERV 10:35
PROVIDERS: ADMIT Orthopaedic Surgery Orthopaedic Surgery of the Spine; ATTEND Orthopaedic Surgery Orthopaedic Surgery of the Spine
PROC: 0RT30ZZ Resection of Cervical Vertebral Disc, Open Approach (ICD-10-PCS; principal; 2016-12-09 07:45)
PROC: 0RG20A0 Fusion of 2 or more Cervical Vertebral Joints with Interbody Fusion Device, Anterior Approach, Anterior Column, Open Approach (ICD-10-PCS; principal; 2016-12-09 07:45)
DX: M47.12 Other spondylosis with myelopathy, cervical region (principal); M47.22 Other spondylosis with radiculopathy, cervical region; M48.02 Spinal stenosis, cervical region; I10 Essential (primary) hypertension; E78.5 Hyperlipidemia, unspecified; K21.9 Gastro-esophageal reflux disease without esophagitis; M19.90 Unspecified osteoarthritis, unspecified site; F41.9 Anxiety disorder, unspecified; F32.9 Major depressive disorder, single episode, unspecified; F43.10 Post-traumatic stress disorder, unspecified; Z87.891 Personal history of nicotine dependence; Z79.899 Other long term (current) drug therapy

== ENCOUNTER 2024-01-29 18:03 | Inpatient (IN) ==
[2024-01-29 19:21] LABS: Basophils # (auto) 0.06 K/uL (0.00-0.20); Basophils % (auto) 0.6 %; Eosinophils # (auto) 0.21 K/uL (0.00-0.50); Eosinophils % (auto) 2.1 %; Hemoglobin 14.7 g/dl (12.0-16.0); Immature Granulocytes # (auto) 0.03 K/uL (0.01-0.20); Immature Granulocytes % (auto) 0.3 %; Lymphocytes # (auto) 2.22 K/uL (1.20-3.40); Lymphocytes % (auto) 22.7 %; Mean Corpuscular Hemoglobin 30.5 pg (25.0-34.0); Mean Corpuscular Hgb Conc 33.4 g/dL (32.0-36.0); Mean Corpuscular Volume 91.3 fL (80.0-100.0); Mean Platelet Volume 10.5 fL (9.4-12.4); Monocytes # (auto) 0.55 K/uL (0.11-0.59); Monocytes % (auto) 5.6 %; Neutrophils % (auto) 68.7 %; Platelet Count 278 K/uL (130-400); RDW Coefficient of Variation 13.3 % (11.5-14.5); RDW Standard Deviation 44.8 fL (36.4-46.3); Red Blood Count 4.82 M/uL (4.20-5.40); White Blood Count 9.77 K/ul (4.8-10.8)
[2024-01-29 19:37] LABS: Albumin Globulin Ratio 1.4 (0.9-2); Albumin Level 4.8 gm/dl (3.4-5.0); BUN Creatinine Ratio 21.5 (10-20); Bilirubin,Total 0.3 mg/dl (0.2-1.0); Est GFR (African American) 75.8 ml/min; Est GFR (Non-African American) 65.4 ml/min; Globulin 3.4 gm/dl (2.5-4.0); Magnesium 2.1 mg/dl (1.7-2.4); Potassium 3.8 mmol/L (3.5-5.1); Total Protein 8.2 gm/dl (6.0-8.3)
[2024-01-29 19:39] LABS: Appearance Urine Clear (Clear); Bilirubin Urine Negative (Negative); Blood Urine Negative (Negative); Color Urine Yellow; Glucose Urine UA Negative (Negative); Ketones Urine Negative (Negative); Leukocyte Esterase Urine Negative (Negative); Nitrite Urine Negative (Negative); Protein Urine Negative (Negative); Specific Gravity Urine 1.013 (1.000-1.030); Urobilinogen Urine Negative (Negative)
[2024-01-29 19:42] LABS: Troponin I High Sensitivity 3.6 pg/ml (0-14)
[2024-01-29 19:47] LABS: INR 0.9 (0.9-1.1); Partial Thromboplastin Ratio 0.9; Partial Thromboplastin Time 24 Seconds (21-31); Prothrombin Time 9.8 Seconds (9.0-12.0)
--- NOTE | 2024-01-29 21:14 | Emergency Department Note ---
ED Provider Note NAME: JIM BAL AGE: 64 SEX: F : 1960 ARRIVES VIA: Walk-In INFORMANT: [Patient][, ] ED PROVIDER(S): [Krishan Samuel MD] CHIEF COMPLAINT: [] MEDICAL DECISION MAKING: [] Discussion w/ other healthcare providers: [None] Prior /Outside records reviewed: I reviewed a primary care visit January 23, 2024. Patient was seen by Pipo parsons. Patient with diabetic foot ulcer and cellulitis the right foot. Patient did have blood work completed. Patient was to continue with Bactroban and started on doxycycline at that time. Prior to this the patient was on clindamycin. Patient reportedly had a right foot injected on October 23 noted an open area in the site of injection on January 03 she went to urgent care on January 09. Patient was started on Keflex at that time after which point she then was switched to clindamycin on January 16. Patient reportedly does have a wound care referral for January 30. Differential diagnosis: [] Diagnostics, as interpreted by me: ECG: [none] Cardiac monitoring: An order was placed for continuous cardiac monitoring. The monitor shows a rate of [] with [] rhythm. [Patient was placed on pulse oximetry] Medical decision rules: [none] Imaging studies: [I informally interpreted the patient's [] with formal report to follow.] [] HPI: [] PAST MEDICAL HISTORY: [See Below] PAST SURGICAL HISTORY: [See Below] SOCIAL HISTORY: [See Below] HOME MEDICATIONS: [See Below] ALLERGIES: [See Below] VITALS: [See Below] PHYSICAL EXAMINATION: GENERAL: NAD, non-toxic. EYE EXAM: Normal conjunctiva. PERRL, no anisocoria and EOM's grossly intact w/o pain. OROPHARYNX: Moist mucus membranes, grossly normal dentition. NECK: Trachea midline, no stridor. [Supple, no nuchal rigidity, no adenopathy, non-tender. No signs of meningismus. FROM of the neck with good chin to chest and neck extension.] LUNGS: Clear to auscultation. Normal chest wall mechanics. HEART: NSR, no MRG. ABDOMEN: Abdomen soft, non-tender, no masses, no rebound or guarding. BACK: No CVA TTP. SKIN: No rashes and no bruising. UPPER EXTREMITIES: Upper extremities are grossly normal. LOWER EXTREMITIES: Grossly normal, no edema. NEURO EXAM: A&O x3, cranial nerves II-XII grossly intact, normal speech, moves all 4 extremities. Past Med/Surg History Problem List Diabetic foot ulcer Wound of right foot Cellulitis of right foot Myalgia Well adult exam Diabetes mellitus type II, controlled Heel pain, bilateral Colon cancer screening Encounter for screening colonoscopy Elevated blood sugar Lumbar degenerative disc disease Aortic calcification Lumbar pain Nasal congestion Sore throat Chronic GERD Gastric polyps Pain of right heel Lumbar pain Dysphagia Encounter for preventive care Right upper quadrant pain Viral pneumonia Elevated liver enzymes Exposure to COVID-19 virus Sinusitis Body aches Fever Headache Hypertension Hyperlipidemia Allergy Screening mammogram, encounter for Acute sinusitis Dyspnea Cough Flu-like symptoms Cervical stenosis of spinal canal Medical History Allergic rhinitis PTSD (post-traumatic stress disorder) Persistent insomnia Generalized anxiety disorder Mixed dyslipidemia H/O tinnitus GERD (gastroesophageal reflux disease) Cervical facet syndrome DDD (degenerative disc disease) Hypertension Vitamin D deficiency Otosclerosis Surgical History History of hysterectomy History of tonsillectomy and adenoidectomy History of appendectomy History of esophagogastroduodenoscopy (EGD) H/O colonoscopy H/O section Family History Father Heart disease Diabetes Endocrine disorder Hypertension Stroke Mother Diabetes Dyslipidemia Heart disease Hypertension Sister Lung cancer Brother Heart disease Hypertension Social History Smoking Status: Never smoker Age Started Using Tobacco: 17; packs per day: 1; Second Hand Exposure: No; Hx Alcohol Use: Yes Alcohol type: wine Hx Substance Use: No marital status: Current Living Situation: Spouse current occupational status: employed current occupation: [employer] Feels Safe at Home: Yes Childhood Exposure to Second-Hand Smoke: Yes caffeine: Yes (coffee ) Dental Care, Regularly: Yes Physical Activity Frequency: 3-4 Times per Week Seatbelt Use: always Allergies Allergies Allergy/AdvReac Type Severity Reaction Status Date / Time terconazole Allergy Unknown rash Verified 01/23/24 09:01 naproxen Allergy Verified 01/23/24 09:01 hydrocodone AdvReac Mild SEVERE Verified 01/23/24 09:01 NAUSEA AND VOMITING Home Meds Home Medications Medication Instructions Recorded Confirmed cholecalciferol (vitamin D3) 25 1,000 units PO DAILY 05/07/19 01/23/24 mcg (1,000 unit) capsule multivitamin,[id number] 1 tab PO DAILY 05/07/19 01/23/24 (Complete Multivitamin tablet) loratadine 10 mg tablet (Allergy 10 mg PO DAILY PRN 05/10/19 01/23/24 Relief (loratadine)) triamcinolone acetonide 0.1 % 1 applic topical BID PRN 12/12/22 01/23/24 topical cream mometasone 100 mcg/actuation HFA 2 puff inhalation BID PRN 12/29/23 01/23/24 aerosol inhaler (Asmanex HFA) Previous Rx's Medication Instructions Recorded albuterol sulfate 90 mcg/actuation 2 puff inhalation QID 90 days #3 04/08/22 aerosol inhaler (ProAir HFA) Inhalers cyclobenzaprine 5 mg tablet 5 mg PO BID PRN muscle spasm #60 12/27/22 tabs hydrochlorothiazide 12.5 mg capsule 12.5 mg PO DAILY #90 caps 05/29/23 potassium chloride 8 mEq 8 meq PO DAILY #90 tabs 09/13/23 tablet,extended release (Klor-Con) verio one touch strips #100 ea 09/25/23 fluticasone propionate 50 2 spray intranasal DAILY PRN 11/08/23 mcg/actuation nasal allergy symptoms #54.6 mL spray,suspension (Allergy Relief (fluticasone)) metformin 500 mg tablet,extended 500 mg PO DAILY #90 tabs 11/14/23 release 24 hr lisinopril 5 mg tablet 5 mg PO BID #180 tabs 12/04/23 metoprolol succinate 25 mg 50 mg (2 x 25 mg) PO DAILY #180 12/04/23 tablet,extended release 24 hr tabs omeprazole 40 mg capsule,delayed 40 mg PO DAILY #90 caps 12/04/23 release ezetimibe 10 mg tablet (Zetia) 10 mg PO DAILY #30 tabs 01/13/24 clindamycin HCl 300 mg capsule 300 mg PO TID 10 days #30 caps 01/15/24 mupirocin 2 % topical ointment 1 applic topical BID #22 grams 01/15/24 fluconazole 150 mg tablet 150 mg PO Q7D 2 doses #2 tabs 01/16/24 clonazepam 0.5 mg tablet 0.5 mg PO HS #90 tabs 01/23/24 doxycycline hyclate 100 mg capsule 100 mg PO BID #20 caps 01/23/24 Results & Data (ED) Vital Signs Vital Signs - 24 hr 01/29/24 18:19 Temperature 36.7 C Temperature Source Temporal Artery Scan Pulse Rate 121 H Respiratory Rate 20 Respiratory Effort / Characteristics Non-Labored Spontaneous Respiratory Depth Normal Blood Pressure 159/84 H Blood Pressure Mean 109 Pulse Oximetry 97 Oxygen Delivery Method Room Air Sepsis Recent Fever Within 48 Hours No Sepsis New/Unexplained Change in Mental Status No Sepsis Action Taken by Nursing No Action Required Laboratory Data 01/29/24 19:02 01/29/24 19:02 Lab Results 01/29/24 01/29/24 01/29/24 Range/Units 19:02 19:06 19:17 WBC 9.77 (4.8-10.8) K/ul RBC 4.82 (4.20-5.40) M/uL Hgb 14.7 (12.0-16.0) g/dl Hct 44.0 (37.0-47.0) % MCV 91.3 (80.0-100.0) fL MCH 30.5 (25.0-34.0) pg MCHC 33.4 (32.0-36.0) g/dL RDW Std Deviation 44.8 (36.4-46.3) fL RDW Coeff of Jeancarlos 13.3 (11.5-14.5) % Plt Count 278 (130-400) K/uL MPV 10.5 (9.4-12.4) fL Immature Gran % (Auto) 0.3 % Neut % (Auto) 68.7 % Lymph % (Auto) 22.7 % [place] % (Auto) 5.6 % Eos % (Auto) 2.1 % Baso % (Auto) 0.6 % Neut # (Auto) 6.70 H (1.40-6.50) K/uL Lymph # (Auto) 2.22 (1.20-3.40) K/uL [place] # (Auto) 0.55 (0.11-0.59) K/uL Eos # (Auto) 0.21 (0.00-0.50) K/uL Baso # (Auto) 0.06 (0.00-0.20) K/uL Immature Gran # (Auto) 0.03 (0.01-0.20) K/uL PT 9.8 (9.0-12.0) Seconds INR 0.9 (0.9-1.1) APTT 24 (21-31) Seconds PTT Ratio 0.9 Sodium 137 (136-145) mmol/L Potassium 3.8 (3.5-5.1) mmol/L Chloride 101 (98-107) mmol/L Carbon Dioxide 26 (21-32) mmol/L Anion Gap 10 (3-11) BUN 20 (6-23) mg/dl Creatinine 0.93 (0.6-1.2) mg/dl Est Cr Clr Drug Dosing 67.0 ml/min Est GFR ( Amer) 75.8 ml/min Est GFR (Non-Af Amer) 65.4 ml/min BUN/Creatinine Ratio 21.5 H (10-20) Glucose 112 H (70-99(Fasting)) mg/dl Lactate 1.4 (0.4-2.0) mmol/L Calcium 10.0 (8.6-10.3) mg/dl Magnesium 2.1 (1.7-2.4) mg/dl Total Bilirubin 0.3 (0.2-1.0) mg/dl AST 23 (13-39) U/L ALT 38 (7-52) U/L Alkaline Phosphatase 84 (34-104) U/L Troponin I High Sens 3.6 (0-14) pg/ml Total Protein 8.2 (6.0-8.3) gm/dl Albumin 4.8 (3.4-5.0) gm/dl Globulin 3.4 (2.5-4.0) gm/dl Albumin/Globulin Ratio 1.4 (0.9-2) Procalcitonin < 0.02 (0-0.5) ng/ml Urine Color Yellow Urine Appearance Clear (Clear) Urine pH 5.0 (4.5-7.5) Ur Specific [place] 1.013 (1.000-1.030) Urine Protein Negative (Negative) Urine Glucose (UA) Negative (Negative) Urine Ketones Negative (Negative) Urine Blood Negative (Negative) Urine Nitrite Negative (Negative) Urine Bilirubin Negative (Negative) Urine Urobilinogen Negative (Negative) Ur Leukocyte Esterase Negative (Negative) Discharge Plan Visit Data Chief Complaint: Foot Injury/Pain Stated Complaint: RT FOOT INFECTION ED Provider: Krishan Samuel Forms Stand Alone Forms: [facility] Prescriptions Prescriptions: No Action cyclobenzaprine 5 mg tablet 5 mg PO BID PRN (Reason: muscle spasm) Qty: 60 3RF hydrochlorothiazide 12.5 mg capsule 12.5 mg PO DAILY Qty: 90 1RF potassium chloride [Klor-Con 8] 8 mEq tablet extended release 8 meq PO DAILY Qty: 90 2RF fluticasone propionate [Allergy Relief (fluticasone)] 50 mcg/actuation spray,suspension 2 spray INTNAS DAILY PRN (Reason: allergy symptoms) Qty: 54.6 3RF metformin 500 mg tablet extended release 24 hr 500 mg PO DAILY Qty: 90 3RF lisinopril 5 mg tablet 5 mg PO BID Qty: 180 3RF omeprazole 40 mg capsule,delayed release(DR/EC) 40 mg PO DAILY Qty: 90 3RF metoprolol succinate 25 mg tablet extended release 24 hr 50 mg PO DAILY Qty: 180 3RF ezetimibe [Zetia] 10 mg tablet 10 mg PO DAILY Qty: 30 2RF fluconazole 150 mg tablet 150 mg PO Q7D Qty: 2 0RF doxycycline hyclate 100 mg capsule 100 mg PO BID Qty: 20 0RF clonazepam 0.5 mg tablet 0.5 mg PO HS Qty: 90 0RF Complete Multivitamin tablet 1 tab PO DAILY cholecalciferol (vitamin D3) 1,000 unit capsule 1,000 units PO DAILY loratadine [Allergy Relief (loratadine)] 10 mg tablet 10 mg PO DAILY PRN albuterol sulfate [ProAir HFA] 90 mcg/actuation HFA aerosol inhaler 2 puff INH QID 90 Days Qty: 3 3RF (DME) verio one touch strips See Rx Instructions .Route .MEDSUPPLY Qty: 100 5RF Rx Instructions: check blood sugar twice daily triamcinolone acetonide 0.1 % cream 1 applic topical BID PRN Rx Instructions: Apply to areas of the chest twice daily for up to 2 weeks as needed for flaring. Asmanex HFA 100 mcg/actuation HFA aerosol inhaler 2 puff INH BID PRN clindamycin HCl 300 mg capsule 300 mg PO TID 10 Days Qty: 30 0RF mupirocin 2 % ointment 1 applic topical BID Qty: 22 3RF Referrals Referrals: Pipo Parsons DO [Primary Care Provider] -
[2024-01-29] MEDS: MoRPHine SULFATE 10 MG/ML CARP/VIAL IV STA (22:15)
[2024-01-29] MEDS: ONDANSETRON INJ 2 MG/ML 2 ML VIAL IV STA (22:15)
[2024-01-29] MEDS: KETOROLAC TROMETHAMINE 15 MG/ML VIAL IV ONE (22:15)
[2024-01-30] MEDS ORDERED: VANCOMYCIN CONSULT ACTIVE PRN (00:07)
[2024-01-30] MEDS ORDERED: MoRPHine SULFATE 2 MG/ML CARP IV PRN (00:12)
[2024-01-30] MEDS ORDERED: ONDANSETRON INJ 2 MG/ML 2 ML VIAL IV PRN (00:12)
--- NOTE | 2024-01-30 00:22 | History & Physical Report ---
Date of Service January 30, 2024 Assessment & Plan (1) Diabetic foot ulcer: (2) Wound of right foot: (3) Cellulitis of right foot: (4) Diabetes mellitus type II, controlled: (5) Chronic GERD: (6) Hypertension: Plan Right fifth MTP diabetic foot ulcer- History of injection at this site on 10/23 Previous antibiotics include 01/09 Keflex, 01/16 clindamycin, 01/[address] on vancomycin IV and Zosyn IV for empiric treatment Consulted wound care MRI suggestive of ulcer at the base of the fifth MTP without involvement with osteomyelitis Order lower extremity arterial arterial Doppler Acetaminophen 650 mg by mouth every 6 hours as needed for mild pain or fever Toradol 15 mg IV every 6 hours as needed for moderate pain Morphine sulfate 2 mg IV every 4 hours as needed for severe pain Avoid any higher doses as patient became hypoxic NSS plus KCl 20 mill equivalents at 80 mL/h x 1 L Zofran 4 mg IV every 6 hours as needed Hypertension- Borderline his blood pressure at this point Hold hydrochlorothiazide, lisinopril, potassium chloride Continue metoprolol succinate Diabetes mellitus- Hold metformin Placed on Accu-Cheks with NovoLog SSI Anxiety/insomnia/neuropathy- Continue clonazepam 0.5 mg at bedtime Asthma- Continue usual inhalers History of Present Illness Chief Complaint: The patient presents to the emergency department with history of having had a injection into the base of her right fifth MTP on 11/23/2023. She reported the pain had been gradually improving, then, she reports that it opened spontaneously the second or third week of December. She been cleaning it with peroxide and apply Neosporin, she reports that when the pain continued, she presented to outpatient office, and initially was treated on 01/09 with Keflex, then 01/16 with clindamycin, then 01/22 with doxycycline, and has a pending appointment with wound care on 01/29. She presents emergency department this evening with concerns regarding worsening pain and discomfort Primary Care Provider: Pipo Neil DO The patient is a 64-year-old female with a past medical history including diabetes mellitus type 2, bilateral heel pain, lumbar degenerative disc disease, chronic GERD, viral pneumonia, hypertension, hyperlipidemia, cervical spinal canal stenosis. She presents to the emergency department with symptoms and story as noted above. Allergies Allergy/AdvReac Type Severity Reaction Status Date / Time terconazole Allergy Intermediate rash Verified 01/29/24 21:41 hydrocodone AdvReac Severe SEVERE Verified 01/29/24 21:41 NAUSEA AND VOMITING naproxen AdvReac Intermediate Vomiting Verified 01/29/24 21:41 Home Medications Medication Instructions Recorded Confirmed Type cholecalciferol (vitamin D3) 25 1,000 units PO DAILY 05/07/19 01/29/24 History mcg (1,000 unit) capsule loratadine 10 mg tablet (Allergy 10 mg PO DAILY PRN Congestion 05/10/19 01/29/24 History Relief (loratadine)) triamcinolone acetonide 0.1 % 1 applic topical BID PRN FLARE UPS 12/12/22 01/29/24 History topical cream cyclobenzaprine 5 mg tablet 5 mg PO BID PRN muscle spasm #60 12/27/22 01/29/24 Rx tabs hydrochlorothiazide 12.5 mg capsule 12.5 mg PO DAILY #90 caps 05/29/23 01/29/24 Rx potassium chloride 8 mEq 8 meq PO DAILY #90 tabs 09/13/23 01/29/24 Rx tablet,extended release (Klor-Con) verio one touch strips #100 ea 09/25/23 01/23/24 Rx fluticasone propionate 50 2 spray intranasal DAILY PRN 11/08/23 01/29/24 Rx mcg/actuation nasal allergy symptoms #54.6 mL spray,suspension (Allergy Relief (fluticasone)) metformin 500 mg tablet,extended 500 mg PO DAILY #90 tabs 11/14/23 01/29/24 Rx release 24 hr lisinopril 5 mg tablet 5 mg PO BID #180 tabs 12/04/23 01/29/24 Rx metoprolol succinate 25 mg 50 mg (2 x 25 mg) PO DAILY #180 12/04/23 01/29/24 Rx tablet,extended release 24 hr tabs omeprazole 40 mg capsule,delayed 40 mg PO DAILY #90 caps 12/04/23 01/29/24 Rx release mometasone 100 mcg/actuation HFA 2 puff inhalation BID PRN 12/29/23 01/29/24 History aerosol inhaler (Asmanex HFA) Congestion ezetimibe 10 mg tablet (Zetia) 10 mg PO DAILY #30 tabs 01/13/24 01/29/24 Rx fluconazole 150 mg tablet 150 mg PO Q7D 2 doses #2 tabs 01/16/24 01/29/24 Rx clonazepam 0.5 mg tablet 0.5 mg PO HS #90 tabs 01/23/24 01/29/24 Rx doxycycline hyclate 100 mg capsule 100 mg PO BID #20 caps 01/23/24 01/29/24 Rx albuterol sulfate 90 mcg/actuation 2 puff inhalation QID PRN 01/29/24 01/29/24 History aerosol inhaler Shortness Of Breath Or Wheezing multivitamin-ferrous 1 tab PO DAILY 01/29/24 01/29/24 History fumarate-folic acid 18 mg-400 mcg tablet (Complete Multivitamin-Multimineral) mupirocin 2 % topical ointment 1 applic topical BID PRN Skin 01/29/24 01/29/24 History Irritation Past Med/Surg History Problem List Diabetic foot ulcer Wound of right foot Cellulitis of right foot Myalgia Well adult exam Diabetes mellitus type II, controlled Heel pain, bilateral Colon cancer screening Encounter for screening colonoscopy Elevated blood sugar Lumbar degenerative disc disease Aortic calcification Lumbar pain Nasal congestion Sore throat Chronic GERD Gastric polyps Pain of right heel Lumbar pain Dysphagia Encounter for preventive care Right upper quadrant pain Viral pneumonia Elevated liver enzymes Exposure to COVID-19 virus Sinusitis Body aches Fever Headache Hypertension Hyperlipidemia Allergy Screening mammogram, encounter for Acute sinusitis Dyspnea Cough Flu-like symptoms Cervical stenosis of spinal canal Medical History Allergic rhinitis PTSD (post-traumatic stress disorder) Persistent insomnia Generalized anxiety disorder Mixed dyslipidemia H/O tinnitus GERD (gastroesophageal reflux disease) Cervical facet syndrome DDD (degenerative disc disease) Hypertension Vitamin D deficiency Otosclerosis Surgical History History of hysterectomy History of tonsillectomy and adenoidectomy History of appendectomy History of esophagogastroduodenoscopy (EGD) H/O colonoscopy H/O section Family History Father Heart disease Diabetes Endocrine disorder Hypertension Stroke Mother Diabetes Dyslipidemia Heart disease Hypertension Sister Lung cancer Brother Heart disease Hypertension Social History Smoking Status: Former smoker Age Started Using Tobacco: 17; packs per day: 1; Second Hand Exposure: No; Hx Alcohol Use: Yes Alcohol type: wine Hx Substance Use: No Preferred Language: Serbian [place] Required: No Beliefs That Will Affect Care: None marital status: Current Living Situation: Spouse current occupational status: employed current occupation: [employer] Feels Safe at Home: Yes Safety Concerns: Feels Safe At This Time Childhood Exposure to Second-Hand Smoke: Yes caffeine: Yes (coffee ) Dental Care, Regularly: Yes Physical Activity Frequency: 3-4 Times per Week Seatbelt Use: always Review of Systems Review of Systems: The patient denies chest pain, palpitations, shortness of breath, dyspnea on exertion, cough, sore throat, fevers, chills, sweats, weight change, fatigue, nausea, vomiting, diarrhea , constipation, abdominal pain, pelvic pain, blood in urine or stool, dysuria, urinary frequency or urgency, lightheadedness, dizziness, headache, memory loss, loss of consciousness, abnormal bruising or bleeding, focal or generalized weakness, numbness or tingling in arms , generalized arthralgias or myalgias, back or neck pain, or night sweats. The review of systems is otherwise negative other than for that already noted above, and at least 10 systems have been reviewed. Physical Exam Physical Exam: The patient is awake, alert and oriented 3, well developed and well nourished, normocephalic and atraumatic, lying in bed and in no acute distress. HEENT--PERRL, EOMI, mucous membranes and oropharynx mildly Neck--supple. No JVD. No bruits. Thyroid normal, trachea midline, no adenopathy. Heart--normal S1 and S2. No murmurs, rubs or gallops. Lungs--clear bilaterally, no respiratory distress, no accessory muscle use. Abdomen--normal bowel sounds and soft. Nontender. Nondistended, no hernias or masses, no organomegaly. Extremities--no cyanosis or clubbing. No edema. Diminished DP pulses bilaterally Dermatologic--lesion to base of fifth MTP approximately 1 cm in diameter with scabbing over top Neurologic--cranial nerves II through XII grossly intact. Rheumatologic--normal range of motion. Psychiatric--normal affect. Results & Data Results & Data Vital Signs (Past 12 Hours) Vital Signs Temp Pulse Resp BP Pulse Ox O2 Del Method 01/29/24 22:30 94 H 13 152/98 H 94 01/29/24 21:12 101 H 01/29/24 21:12 101 H 16 181/102 H 96 Room Air 01/29/24 18:19 36.7 C 121 H 20 159/84 H 97 Room Air Laboratory Results Laboratory Results WBC 9.77 K/ul (4.8-10.8) 01/29/24 19:02 RBC 4.82 M/uL (4.20-5.40) 01/29/24 19:02 Hgb 14.7 g/dl (12.0-16.0) 01/29/24 19:02 Hct 44.0 % (37.0-47.0) 01/29/24 19:02 MCV 91.3 fL (80.0-100.0) 01/29/24 19:02 MCH 30.5 pg (25.0-34.0) 01/29/24 19:02 MCHC 33.4 g/dL (32.0-36.0) 01/29/24 19:02 RDW Std Deviation 44.8 fL (36.4-46.3) 01/29/24 19:02 RDW Coeff of Jeancarlos 13.3 % (11.5-14.5) 01/29/24 19:02 Plt Count 278 K/uL (130-400) 01/29/24 19:02 MPV 10.5 fL (9.4-12.4) 01/29/24 19:02 Immature Gran % (Auto) 0.3 % 01/29/24 19:02 Neut % (Auto) 68.7 % 01/29/24 19:02 Lymph % (Auto) 22.7 % 01/29/24 19:02 [place] % (Auto) 5.6 % 01/29/24 19:02 Eos % (Auto) 2.1 % 01/29/24 19:02 Baso % (Auto) 0.6 % 01/29/24 19:02 Neut # (Auto) 6.70 K/uL (1.40-6.50) H 01/29/24 19:02 Lymph # (Auto) 2.22 K/uL (1.20-3.40) 01/29/24 19:02 [place] # (Auto) 0.55 K/uL (0.11-0.59) 01/29/24 19:02 Eos # (Auto) 0.21 K/uL (0.00-0.50) 01/29/24 19:02 Baso # (Auto) 0.06 K/uL (0.00-0.20) 01/29/24 19:02 Immature Gran # (Auto) 0.03 K/uL (0.01-0.20) 01/29/24 19:02 PT 9.8 Seconds (9.0-12.0) 01/29/24 19:02 INR 0.9 (0.9-1.1) 01/29/24 19:02 APTT 24 Seconds (21-31) 01/29/24 19:02 PTT Ratio 0.9 01/29/24 19:02 Sodium 137 mmol/L (136-145) 01/29/24 19:02 Potassium 3.8 mmol/L (3.5-5.1) 01/29/24 19:02 Chloride 101 mmol/L (98-107) 01/29/24 19:02 Carbon Dioxide 26 mmol/L (21-32) 01/29/24 19:02 Anion Gap 10 (3-11) 01/29/24 19:02 BUN 20 mg/dl (6-23) 01/29/24 19:02 Creatinine 0.93 mg/dl (0.6-1.2) 01/29/24 19:02 Est Cr Clr Drug Dosing 67.0 ml/min 01/29/24 19:02 Est GFR ( Amer) 75.8 ml/min 01/29/24 19:02 Est GFR (Non-Af Amer) 65.4 ml/min 01/29/24 19:02 BUN/Creatinine Ratio 21.5 (10-20) H 01/29/24 19:02 Glucose 112 mg/dl (70-99(Fasting)) H 01/29/24 19:02 POC Glucose 134 mg/dl (70-99) H 01/30/24 02:32 Lactate 1.4 mmol/L (0.4-2.0) 01/29/24 19:06 Calcium 10.0 mg/dl (8.6-10.3) 01/29/24 19:02 Magnesium 2.1 mg/dl (1.7-2.4) 01/29/24 19:02 Total Bilirubin 0.3 mg/dl (0.2-1.0) 01/29/24 19:02 AST 23 U/L (13-39) 01/29/24 19:02 ALT 38 U/L (7-52) 01/29/24 19:02 Alkaline Phosphatase 84 U/L (34-104) 01/29/24 19:02 Troponin I High Sens 3.6 pg/ml (0-14) 01/29/24 19:02 Total Protein 8.2 gm/dl (6.0-8.3) 01/29/24 19:02 Albumin 4.8 gm/dl (3.4-5.0) 01/29/24 19:02 Globulin 3.4 gm/dl (2.5-4.0) 01/29/24 19:02 Albumin/Globulin Ratio 1.4 (0.9-2) 01/29/24 19:02 Procalcitonin < 0.02 ng/ml (0-0.5) 01/29/24 19:02 Urine Color Yellow 01/29/24 19:17 Urine Appearance Clear (Clear) 01/29/24 19:17 Urine pH 5.0 (4.5-7.5) 01/29/24 19:17 Ur Specific [place] 1.013 (1.000-1.030) 01/29/24 19:17 Urine Protein Negative (Negative) 01/29/24 19:17 Urine Glucose (UA) Negative (Negative) 01/29/24 19:17 Urine Ketones Negative (Negative) 01/29/24 19:17 Urine Blood Negative (Negative) 01/29/24 19:17 Urine Nitrite Negative (Negative) 01/29/24 19:17 Urine Bilirubin Negative (Negative) 01/29/24 19:17 Urine Urobilinogen Negative (Negative) 01/29/24 19:17 Ur Leukocyte Esterase Negative (Negative) 01/29/24 19:17 Impressions Duplex Scan Lower Extremity Artery 01/30/24 00:01 Exam(s): US ARTERIAL RIGHT LOWER EXTREMITY EXAM: US Duplex Right Lower Extremity Arteries CLINICAL HISTORY: Reason for exam: nonhealing ulcer. TECHNIQUE: Real-time duplex ultrasound scan of the right lower extremity arteries integrating B-mode two-dimensional vascular structure, Doppler spectral analysis and color flow Doppler imaging. COMPARISON: No relevant prior studies available. FINDINGS: There is atherosclerotic vascular disease in the right lower extremity. There is no arterial occlusion. There are multiphasic waveforms throughout. There are slightly elevated peak systolic velocities in the common femoral artery (159 cm/s) in the mid superficial femoral artery (157 cm/s), raising the possibility of less than 50% stenosis at these levels. Peak systolic velocities are otherwise within normal limits. IMPRESSION: Patent right lower extremity arteries. Multiphasic waveforms. Possible mild stenoses in the common femoral artery and mid superficial femoral artery, not hemodynamically significant. Electronically signed by: Carolina Dupont M.D. 01/30/24 02:57 AM Foot MRI 01/30/24 00:01 Exam(s): MRI RIGHT FOOT Without Contrast EXAM: MR Right Lower Extremity Without Intravenous Contrast, Foot CLINICAL HISTORY: Reason for exam: nonhealing lateral ulcer post injection. TECHNIQUE: Multiplanar magnetic resonance images of the right foot without intravenous contrast. COMPARISON: No relevant prior studies available. FINDINGS: Bone marrow signal is normal. There is no evidence of acute osteomyelitis. There is no acute fracture or dislocation. There is osteoarthritis of the first MTP joint with subchondral cystic change at the base of the proximal phalanx. Visualized segments of the flexor and extensor tendons appear unremarkable. Intrinsic muscles of the foot appear normal. Skin marker has been placed dorsal-lateral to the fifth tarsometatarsal joint. There is localized subcutaneous edema in this region. IMPRESSION: 1. Localized edema or cellulitis along the dorsal-lateral aspect of the fifth tarsometatarsal joint. Correlate for ulcer in this location. 2. No evidence of osteomyelitis. Electronically signed by: Carolina Dupont M.D. 01/30/24 02:40 AM Code Status & VTE Plan Code Status Full code VTE Prophylaxis Plan VTE Prophylaxis will be ordered: Yes PG Care Time/CCT Total # of Minutes Spent Total Time Spent with Patient: Total time spent is greater than 50% in coordination of care (as documented) at patient's floor/unit and/or counseling patient: Coding Level of Care Code 73529 INT INP/OBS CARE 3/75MIN Diagnoses Diabetic foot ulcer E11.621; L97.509 Wound of right foot S91.301A Cellulitis of right foot L03.115 Diabetes mellitus type II, controlled E11.9 Chronic GERD K21.9 Hypertension I10
[2024-01-30] MEDS ORDERED: CYCLOBENZAPRINE HCL 5 MG TAB PO PRN (02:27)
[2024-01-30] MEDS ORDERED: CARBOHYDRATES FOR HYPOGLYCEMIA PO PRN (02:27)
[2024-01-30] MEDS ORDERED: GLUCAGON FOR INJ 1 MG VIAL SQ PRN (02:27)
[2024-01-30] MEDS ORDERED: LORATADINE 10 MG TAB PO PRN (02:27)
[2024-01-30] MEDS ORDERED: GLUCOSE 10 TAB/TUBE PO PRN (02:27)
[2024-01-30] MEDS ORDERED: ALBUTEROL HFA 8 GM INHALER INH PRN (02:27)
[2024-01-30] MEDS ORDERED: [UNRECOGNIZED DRUG - OTHER] INH PRN (02:27)
[2024-01-30] MEDS ORDERED: GLUCOSE 40% GEL 15 GM TUBE PO PRN (02:27)
[2024-01-30] MEDS ORDERED: MOMETASONE INH PRN (02:27)
[2024-01-30] MEDS ORDERED: FLUTICASONE PROPIONATE NA SPR 16 GM BTL NAE PRN (02:27)
[2024-01-30] MEDS ORDERED: DEXTROSE 50% 50 ML SYRINGE IV PRN (02:27)
[2024-01-30] MEDS: LIDOCAINE 2% JELLY 5 ML TUBE EXT ONE (02:29)
--- NOTE | 2024-01-30 02:41 | Magnetic Resonance Report ---
Exam(s): MRI RIGHT FOOT Without Contrast EXAM: MR Right Lower Extremity Without Intravenous Contrast, Foot CLINICAL HISTORY: Reason for exam: nonhealing lateral ulcer post injection. TECHNIQUE: Multiplanar magnetic resonance images of the right foot without intravenous contrast. COMPARISON: No relevant prior studies available. FINDINGS: Bone marrow signal is normal. There is no evidence of acute osteomyelitis. There is no acute fracture or dislocation. There is osteoarthritis of the first MTP joint with subchondral cystic change at the base of the proximal phalanx. Visualized segments of the flexor and extensor tendons appear unremarkable. Intrinsic muscles of the foot appear normal. Skin marker has been placed dorsal-lateral to the fifth tarsometatarsal joint. There is localized subcutaneous edema in this region. IMPRESSION: 1. Localized edema or cellulitis along the dorsal-lateral aspect of the fifth tarsometatarsal joint. Correlate for ulcer in this location. 2. No evidence of osteomyelitis. Electronically signed by: Carolina Dupont M.D. 01/30/24 02:40 AM
--- NOTE | 2024-01-30 02:58 | Ultrasound Report ---
Exam(s): US ARTERIAL RIGHT LOWER EXTREMITY EXAM: US Duplex Right Lower Extremity Arteries CLINICAL HISTORY: Reason for exam: nonhealing ulcer. TECHNIQUE: Real-time duplex ultrasound scan of the right lower extremity arteries integrating B-mode two-dimensional vascular structure, Doppler spectral analysis and color flow Doppler imaging. COMPARISON: No relevant prior studies available. FINDINGS: There is atherosclerotic vascular disease in the right lower extremity. There is no arterial occlusion. There are multiphasic waveforms throughout. There are slightly elevated peak systolic velocities in the common femoral artery (159 cm/s) in the mid superficial femoral artery (157 cm/s), raising the possibility of less than 50% stenosis at these levels. Peak systolic velocities are otherwise within normal limits. IMPRESSION: Patent right lower extremity arteries. Multiphasic waveforms. Possible mild stenoses in the common femoral artery and mid superficial femoral artery, not hemodynamically significant. Electronically signed by: Carolina Dupont M.D. 01/30/24 02:57 AM
[2024-01-30] MEDS: VANCOMYCIN HCL 1,750 MG in SODIUM CHLORIDE 0.9% 500 ML IV ONE (03:12)
[2024-01-30] MEDS: PIPERACILLIN/TAZOBACTAM 4.5 GM in DEXTROSE 5% MINI-B 100 ML IV ONE (03:19)
[2024-01-30] MEDS: NSS + 20MEQ KCL 20 MEQ/1,000 ML BAG IV SCH (03:22)
[2024-01-30] MEDS: FLUCONAZOLE 50 MG TAB PO SCH (03:24)
[2024-01-30] MEDS: clonazePAM 0.5 MG TAB PO STA ×2 (03:28→05:04)
--- OUTSIDE RECORDS SUMMARY | 2024-01-30 04:02 | External Medical Summary | Summary of Care ---
Author Name Unknown Organization [facility] Address [address] [place] [address] Phone [phone] Care Team Providers Care Director Sterile Processing Name Role Phone Pipo Neil DO Primary Care Provider [phone] Reason for Visit * Reason Comments Wound Care Right foot Encounter Details Date Type Department Care Team ([facility] st Contact Info) Description 01/26/2024 10:30 AM EDT Office Visit Wound Care, [facility] [address] [place], [place] [phone] Amna Mei, YON [address] [place] [address] Diabetic ulcer of right midfoot associated with diabetes mellitus due to underlying condition, limited to breakdown of skin (HCC)* Allergies Active Allergy Reactions Criticality Noted Date Comments Ampicillin 08/14/2001 , can take amoxil w/o problem Naproxen 05/05/2004 nausea Terconazole Other (Please comment) Medium 09/01/2009 Caused skin rash on perineum Hydrocodone-Acetaminoph en 12/02/2009 Severe nausea documented as of this encounter (statuses as of 01/26/2024) Medications Medication Sig Dispensed Refills Start Date End Date Status VITAMIN D 1000 UNIT PO CAPSIndications:Vitam in D deficiency 1 capsule daily 30 Cap 11 08/16/2010 Active Multiple Vitamins-Calcium (ONE-A-DAY WOMENS FORMULA) Tablet Take 1 Tablet by mouth in the morning. Active loratadine (CLARITIN) 10 MG TabletIndications:All ergic rhinitis Take 1 Tablet by mouth in the morning. As needed. 12/05/2017 Active atorvaSTATin (LIPITOR) 10 MG TabletIndications:Dys lipidemia, goal LDL below 160 TAKE 1 TABLET BY MOUTH DAILY 90 Tab 3 01/07/2018 Active Additional Information Patient not taking.Reported on 01/07/2024 lisinopril (PRINIVIL) 2.5 MG TabletIndications:HTN , goal below 140/90 Take 1 Tab by mouth daily. 90 Tab 3 06/13/2018 Active Additional Information Patient taking differently: 5 mgOralBID (.AM/PM), Reported on 02/18/2023 meclizine (ANTIVERT) 25 MG TabletIndications:Maria Guadalupe tigo Take 1 Tab by mouth 3 times a day as needed for Dizziness. 60 Tab 3 06/13/2018 Active metoprolol succinate XL (TOPROL XL) 25 MG [id number]:HTN, goal below 140/90 TAKE TWO TABLETS BY MOUTH DAILY 180 Tab 3 08/20/2018 Active clonazePAM (KLONOPIN) 0.5 MG TabletIndications:Gen eralized anxiety disorder TAKE 1 TABLET BY MOUTH EVERY NIGHT AT BEDTIME GENERIC EQUIVALENT FOR KLONOPIN 90 Tab 1 12/03/2018 Active fluticasone (FLONASE) 50 MCG/ACT nasal sprayIndications:Matt rgic rhinitis due to pollen, unspecified seasonality USE 2 SPRAYS IN EACH NOSTRIL DAILY NEEDED. GENERIC EQUIVALENT FOR FLONASE 16 g 5 03/23/2019 Active Ondansetron 4 MG Oral Tablet Disintegrating (Zofran) Place 1 Tab on tongue every 8 hours as needed for Nausea. 12 Tab 07/29/2020 Active Azelastine HCl 0.15 % Nasal Solution Administer 1 Sie[place] into nostril in the morning and 1 Sieper before bedtime. Active Meloxicam 7.5 MG Oral Tablet Take 1 Tablet by mouth in the morning. 01/15/2021 Active Asmanex HFA 100 MCG/ACT Inhalation Aerosol (Mometasone Furoate)Indications:P t taking once daily Inhale 2 Puffs by mouth 2 times a day. Indications: Pt taking once daily Active Omeprazole 40 MG Oral Capsule Delayed Release (PriLOSEC) Take 1 Capsule by mouth in the morning. Active Cyclobenzaprine HCl 5 MG Oral Tablet (Flexeril) 1 Tablet. 05/05/2021 Active Aspirin 81 MG Oral Capsule Take by mouth . Active hydroCHLOROthiazide 12.5 MG Oral Tablet (Hydrodiuril) Take 1 Tablet by mouth in the morning. Active Potassium Chloride ER 8 MEQ Oral Capsule Extended Release Take by mouth once. Active methylPREDNISolone 4 MG Oral Tablet Therapy Pack (Medrol Dosepack) follow package directions 21 Tablet 09/04/2023 Active Additional Information Patient not taking.Reported on 01/07/2024 Mupirocin 2 % External Ointment (Bactroban) APPLY TOPICALLY TWICE A DAY 01/15/2024 Active Doxycycline Hyclate 100 MG Oral Capsule Take 1 Capsule by mouth in the morning and 1 Capsule before bedtime. 01/23/2024 Active Ezetimibe 10 MG Oral Tablet (Zetia) 1 Tablet. 01/13/2024 Active hydroCHLOROthiazide 12.5 MG Oral Capsule Take 1 Capsule by mouth in the morning. 11/07/2023 Active Lisinopril 5 MG Oral Tablet (Prinivil) 1 Tablet in the morning and 1 Tablet before bedtime. 12/04/2023 Active metFORMIN HCl ER 500 MG Oral Tablet Extended Release 24 Hour (Glucophage XR) Take 1 Tablet by mouth in the morning. Active Potassium Chloride ER 8 MEQ Oral Tablet Extended Release Take 1 Tablet by mouth in the morning. 11/04/2023 Active Collagenase 250 UNIT/GM External Ointment (Santyl) Apply to foot ulcer daily with dressing changes 30 g 01/26/2024 Active documented as of this encounter (statuses as of 01/26/2024) Active Problems Problem Noted Date Diagnosed Date Otosclerosis 12/05/2017 History of vitamin D deficiency 06/01/2017 HTN, goal below 140/90 09/01/2016 DDD (degenerative disc disease), cervical 2016 Cervical facet syndrome 05/17/2016 Gastroesophageal reflux disease without esophagi tis 02/16/2016 Tinnitus of right ear 02/19/2015 Menopause 08/10/2010 Overview: S/p ENRICO 2006 , has ovaries Mixed dyslipidemia 09/01/2009 Generalized anxiety disorder Persistent insomnia Overview: Clonazepam 0.25 every evening for sleep since 2001 Posttraumatic stress disorder Allergic rhinitis documented as of this encounter (statuses as of 01/26/2024) Resolved Problems Problem Noted Date Diagnosed Date Resolved Date MEDICATION USE AGREEMENT 04/10/201410/2017 Overview: Updated and reviewed 02/16/2016 Special screening for malign ant neoplasms, colon 07/11/2013 12/05/2017 Overview: Normal colonoscopy 12/2012: repeat 10yr Vitamin D deficiency 08/16/2010 017 ADVANCE DIRECTIVE INFORMATION 12/08/2004 12/05/2017 Overview: No, Advance Directive brochure given to patient at prior appointment. Dermatophytosis of foot 12/19/200309/2003 Overview: resovled PURE HYPERCHOLESTEROLEM 06/02 Overview: Per Lipid Taxonomy. documented as of this encounter (statuses as of 01/26/2024) Immunizations Name Administration Dates Next Due PPD 12/27/2000 Seasonal Influenza, PF, 6 M & above, IM , (FluLaval or Fluzone) 03/12/2019,03/13/2018 Seasonal Influenza, Quadriva lent, No Preserve, IM 03/20/2017,03/31/2016,03/26/2015 Seasonal Influenza, Split, I IV3, With Preserve, Inj 04/03/2014,04/02/2013,03/17/2012, 0 11,04/07/2010,06/05/2007,05/09/2006,06/08,05/16/2002,06/07/2001,05/12/1999, TDAP, Age 7 and older, IM (Adacel) 09/01/2009 documented as of this encounter Social History Tobacco Use Types Packs/Day Years Used Date Smoking Tobacco: Former Cigarettes Q uit: 07/03/1989 Smokeless Tobacco: Never Alcohol Use Standard Drinks/Week Comments No 0 (1 standard drink = 0.6 oz pur e alcohol) PHQ-2 Answer Date Recorded PHQ-2 Score 0 06/13/2018 Utilities Answer Date Recorded Do you have trouble paying y our heating, water, or electric bill? (Adult - for ages 18 years and over) Not on file 12/19/2023 Is your family able to pay t he heat, water, or electric bill? (Household - for ages 0-17 years) Not on file 12/19/2023 Does your family have access to good internet? (Household - for ages 0-17 years) Not on file 12/19/2023 Social Connections Answer Date Recorded How often do you feel lonely or isolated from those around you? (Adult - for ages 18 years and over) Not on file 12/19/2023 Sex and Gender Information Value Date Recorded Sex Assigned at Female 01/10/2019 4:58 PM EDT Gender Identity Female 01/10/2019 4:58 PM EDT Sexual Orientation Straight 01/10/2019 4: 58 PM EDT Job Start Date Occupation Industry Not on file Not on file Not on file documented as of this encounter Progress Notes * Amna Mei, YON - 01/26/2024 11:03 AM EDT Images from the original note were not included. [facility] WOUND OUTPATIENT CONSULT Purvi Johnson is a 64 year old female seen at the request of Dr. Pipo Neil DO for evaluation and treatment. Patient presents with a chief complaint of Wound Care (Right foot) . HPI: Location of wound (s): See Wound Assessment When wound (s) started: In December How Wound (s) began: She states that she had an injection over the area in October however there was bloody drainage and a scab that presented in December. Current/prior treatments: PO abx (several courses), Topical antibacterial ointment. Dressing change frequency: every day RLE Compression: LLE Compression: RLE Wt Bearing Offloading: LLE Wt Bearing Offloading: RLE Non-Wt Bearing Offloading: LLE Non-Wt Bearing Offloading: Offloading Surface for Bed: Offloading Surface for Chair / Wheelchair: ROS: ROS was negative other than stated above. PMH: Patient Active Problem List Diagnosis Generalized anxiety disorder Persistent insomnia Posttraumatic stress disorder Allergic rhinitis Mixed dyslipidemia Menopause Tinnitus of right ear Gastroesophageal reflux disease without esophagitis HTN, goal below 140/90 DDD (degenerative disc disease), cervical History of vitamin D deficiency Otosclerosis Cervical facet syndrome Past Medical History: Diagnosis Date Allergic rhinitis DDD (degenerative disc disease), cervical 09/01/2016 Dyslipidemia, goal LDL below 160 Gastroesophageal reflux disease without esophagitis 02/16/2016 Generalized anxiety disorder History of vitamin D deficiency 06/01/2017 HTN, goal below 140/90 09/01/2016 Measles without complication Measles Menopause 08/10/2010 S/p ENRICO 2006 , has ovaries Mumps without complication Mumps Persistent insomnia Posttraumatic stress disorder hospitalized Rubella, uncomplicated Rubella Tinnitus of right ear 02/19/2015 Varicella without complication Chicken Pox Vitamin D deficiency 08/16/2010 Past Surgical History: Procedure Laterality Date DELIVERY Delivery Only COLONOSCOPY, DIAGNOSTIC (RECTUM) 01/23/2013 Normal - repeat 10yr EGD, FLEXIBLE, DIAGNOSTIC N/A 02/23/2021 esophageal dilation/multiple gastric polyps/biopsies show fundic polyps/ESOPHAGOGASTRODUODENOSCOPY (EGD), FLEXIBLE, TRANSORAL, DIAGNOSTIC performed by Dorothy Nelson DO at OR [facility] EGD, FLEXIBLE, W/BIOPSY 09/09/2009 done non bleeding erosive gastropathy, mild chronic gastritis, negative HPylori, excessive gastric fluidsuspicious for gastroparesis LIGATE/CUT OVIDUCT(S) REMOVAL OF APPENDIX Appendectomy REMOVE TONSILS & ADENOIDS, AGE 12+ Tonsillectomy/Adenoids,12+ Y/O TOTAL ABD HYSTERECTOMY W/WO REMOVAL OF TUBE(S) TOTAL HYSTERECTOMY 2006 LVAH per LOAD OUT SUPERVISOR 2006 Social History: Social History Socioeconomic History Marital status: Spouse name: Carl Number of children: 1 Years of education: 12 Highest education level: Not on file Occupational History Occupation: business applications specialist Employer: [employer] Tobacco Use Smoking status: Former Current packs/day: 0.00 Types: Cigarettes Quit date: 07/03/1989 Years since quittin.5 Smokeless tobacco: Never Substance and Sexual Activity Alcohol use: No Drug use: No Sexual activity: Yes Partners: Male control/protection: Surgical Other Topics Concern Not on file Social History Narrative . One child. One grandchild. Nee: GoodsonWilliam Loja is one of eight children. Mom was [employer] [place] and arthritis. Social Determinants of Health Financial Resource Strain: Not on file Food Insecurity: Not on file Transportation Needs: Not on file Social Connections: Unknown (12/19/2023) Social Connections How often do you feel lonely or isolated from those around you? (Adult - for ages 18 years and over): Not on file Housing Stability: Not on file Family History: Family History Problem Relation Name Age of Onset Diabetes Father Heart Disorder Father Diabetes Mother Endocrine Disorder Father hyperchol Endocrine Disorder Mother hyperchol Heart Disorder Mother [place], CABG x 5 Hypertension Mother Hypertension Father Blood Disorder Mother blood clots Stroke Father Other (MVA) Brother Cancer Sister lung Heart Disorder Brother Hypertension Brother No Past Hx Sister No Past Hx Brother No Past Hx Brother No Past Hx Brother Gastro-intestinal disorder Grandmother (Maternal) colon problems Heart Disorder Grandfather (Maternal) [place] Heart Disorder Grandmother (Paternal) [place] Other (Suicide) Grandfather (Paternal) Cancer Brother throat cancer PE: LMP 12/09/2006 GEN: well-nourished, NAD, awake/alert. VASC: Pedal pulses are palpable. Mild edema appreciated. SKIN: warm and eschar/necrotic area over the lateral right foot. No active signs of infection or purulence noted. WOUND ASSESSMENT: Alteration in Skin Integrity Anterior;Right;Lateral Foot (Active) Clinical Image 01/26/24 1023 Wound Length (cm) 0.9 cm 01/26/24 1023 Wound Width (cm) 0.6 cm 01/26/24 1023 Wound Depth (cm) 0.1 cm (Unable to determine accurately due to scabs ) 01/26/24 1023 Drainage none 01/26/24 1023 Odor (after cleansing wound) No 01/26/24 1023 [place]-Wound (Surrounding Skin) Erythematous 01/26/24 1023 Wound Surface Area (cm^2) 0.54 cm^2 01/26/24 1023 Wound Volume (cm^3) 0.054 cm^3 01/26/24 1023 ASSESSMENT/PLAN: 1. (E08.621, L97.411) Diabetic ulcer of right midfoot associated with diabetes mellitus due to underlying condition, limited to breakdown of skin (HCC) (primary encounter diagnosis) - Pt seen and evaluated - No debridement performed today - Rx for Santyl - For now wash with warm soapy water, no soaking. - Apply ointment and dsd (no bandaids) along with off-loading padding and an CHANTAL - Complete PO abx - Follow up on Mon. Follow-up: Mon Amna Mei DPM 01/26/2024 11:03 AM documented in this encounter Nursing Notes * Joy Garcia LPN - 01/26/2024 1:07 PM EDT Faxed Prior Authorization for Santyl this date to [facility] with all informationrequired. * Joy Garcia LPN - 01/26/2024 11:23 AM EDT Post exam provided wound care per order. Santyl to Wound bed - U-Pad to off load site -- DSD and secured with ConformWilliam Purvi is aware that Santyl requires a prior authorization and this will take a few days. She per may continue use of Mupirocin until it is available to her. Her dressing application was completed step by step allowing her to ask questions while being completed. She is aware that Santyl should be applied to wound bed only. She too is aware to change dailyand call with any questions or concerns. Assisted from exam seating and guide to check out. * Dayami So, RN - 01/26/2024 10:34 AM EDT Wound occurred after a foot injection in October. Has been present and scabbed since December. Is currently taking Doxycycline and apply's Mupirocin cream documented in this encounter Plan of Treatment Upcoming Encounters Date Type Department Care Team (Late st Contact Info) Description 01/31/2024 9:40 AM EDT Office Visit Wound Care, [facility] [address] [place] [phone] Amna Mei DPM [address] [facility] [place] [address] Scheduled Procedures Name Priority Associated Diagnoses Date/Ti me COLONOSCOPY FLEXIBLE PROXIMA L DIAGNOSTIC Recall Screening for colon cancer Health Maintenance Due Date Last Done Comments HIV Screening 01/22/1976 Albumin/Creatinine Ratio 1979 Cologuard 2006 Fecal Occult Blood Test 2006 Sigmoidoscopy 2006 Zoster Vaccines (1 of 2) 2011 Depression Screening 06/13/2019 06/13/2018 DTaP,Tdap,and Td Vaccines (2 - Td or Tdap) 09/02/2019 09/01/2009 GFR 07/29/2021 07/29/2020, 07/0 07/2018, 11/25/2017, Additional history exists Colonoscopy 01/23/2023 01/23/2013, 01/23/2013 Colorectal Cancer Screening 01/23/2023 COVID-19 Vaccine ( season) 2023 05/15/2021, 09/11/2020 Diabetes Screening 07/29/2023 07/29/2020, 0 12/31/2018, 11/25/2017, Additional history exists Lipid Panel 01/01/2024 12/31/2018, 05/03, 11/25/2017, Additional history exists Influenza Vaccine (FLU shot) (#1) 2024 03/15/2023, 03/24/2022, 03/18/2021, Additional history exists Mammogram 08/02/2024 08/02/2023, 07/04, 04/27/2021, Additional history exists Hepatitis C Screening Completed 07/29/2020 HPV (Gardasil) Vaccine Aged Out No lo nger eligible based on patient's age to complete this topic Hepatitis B Vaccine Aged Out No longe r eligible based on patient's age to complete this topic MENINGOCOCCAL (MENACTRA/MENVEO) Aged Out No longer eligible based on patient's age to complete this topic Pneumococcal Vaccine: Pediatrics (0 to 5 Years) and At-Risk Patients (6 to 64 Years) Aged Out No longer eligible based on patient's age to complete this topic documented as of this encounter Medical Devices Not on filedocumented as of this encounter Visit Diagnoses Diagnosis Diabetic ulcer of right midfoot associated with diabetes mellitus due to underlying condition, limited to breakdown of skin (HCC)- Primary documented in this encounter Advance Directives * Full Code (Latest Code Status on File) Date Activated Date Inactivated Comments 02/23/2021 7:52 AM 02/23/2021 12:19 PM This order reflects the patients wishes and were consensually agreed upon. Question Answer Comments Discussion of Advance Directives occurred with: Not Discussed * Full Code Date Activated Date Inactivated Comments 02/23/2021 7:24 AM 02/23/2021 7:52 AM This order r eflects the patients wishes and were consensually agreed upon. Question Answer Comments Discussion of Advance Directives occurred with: Not Discussed Care Teams Director Sterile Processing Relationship Specialty Start Date End Date Pipo Neil DO [address] [facility] [place] [address] PCP - General Family Medicine 06/09/22 documented as of this encounter
--- OUTSIDE RECORDS SUMMARY | 2024-01-30 04:03 | External Medical Summary | Summary of Care ---
Author Name Unknown Organization [facility] Address [address] [place] [address] Phone [phone] Care Team Providers Care Wire Puller Name Role Phone Pipo Neil DO Primary Care Provider [phone] Reason for Visit * Reason Comments Wound Care Right foot Encounter Details Date Type Department Care Team ([facility] st Contact Info) Description 01/26/2024 10:30 AM EDT Office Visit Wound Care, [facility] [address] [place], [place] [phone] Amna Mei, YON [address] [place] [address] Diabetic ulcer of right midfoot associated with [...] metoprolol succinate XL (TOPROL XL) 25 MG [id number]:HTN, goal below 140/90 TAKE TWO TABLETS BY [...] HCl 0.15 % Nasal Solution Administer 1 [place] into nostril in the morning and 1 [place] before bedtime. Active Meloxicam 7.5 MG Oral [...] original note were not included. [facility] WOUND OUTPATIENT CONSULT Purvi Johnson is a [...] performed by Dorothy Nelson DO at OR [facility] EGD, FLEXIBLE, W/BIOPSY 09/09/2009 done non bleeding erosive gastropathy, mild chronic gastritis, negative HPylori, excessive gastric fluidsuspicious for gastroparesis LIGATE/CUT OVIDUCT(S) REMOVAL OF APPENDIX Appendectomy REMOVE TONSILS & ADENOIDS, AGE 12+ Tonsillectomy/Adenoids,12+ Y/O TOTAL ABD HYSTERECTOMY W/WO REMOVAL OF TUBE(S) TOTAL HYSTERECTOMY 2006 LVAH per FORECAST ANALYST 2006 Social History: Social History Socioeconomic History Marital status: Spouse name: Carl Number of children: 1 Years of education: 12 Highest education level: Not on file Occupational History Occupation: business integration manager Employer: [employer] Tobacco Use Smoking status: Former Current packs/day: 0.00 Types: Cigarettes Quit date: 07/03/1989 Years since quittin.5 Smokeless tobacco: Never Substance and Sexual Activity Alcohol use: No Drug use: No Sexual activity: Yes Partners: Male control/protection: Surgical Other Topics Concern Not on file Social History Narrative . One child. One grandchild. Nee: GoodsonWilliam Loja is one of eight children. Mom was [place] and arthritis. Social Determinants of Health Financial [...] Endocrine Disorder Mother hyperchol Heart Disorder Mother [place], CABG x 5 Hypertension Mother Hypertension Father Blood Disorder Mother blood clots Stroke Father Other (MVA) Brother Cancer Sister lung Heart Disorder Brother Hypertension Brother No Past Hx Sister No Past Hx Brother No Past Hx Brother No Past Hx Brother Gastro-intestinal disorder Grandmother (Maternal) colon problems Heart Disorder Grandfather (Maternal) [place] Heart Disorder Grandmother (Paternal) [place] Other (Suicide) Grandfather (Paternal) Cancer Brother throat [...] Notes * Joy Garcia LPN - 01/26/2024 11:23 AM EDT Post exam provided wound care per order. Santyl to Wound bed - U-Pad to off load site -- DSD and secured with Conform. Purvi is aware that Santyl requires a [...] 9:40 AM EDT Office Visit Wound Care, [facility] [address] [place] [phone] Am[facility]i DPM [address] [facility] [address] Scheduled Procedures Name Priority Associated Diagnoses Date/Ti [...] Directives occurred with: Not Discussed Care Teams Wire Puller Relationship Specialty Start Date End Date Pipo Neil DO [address] [place] [address] PCP - General Family Medicine 06/09/22 documented as of this encounter
--- OUTSIDE RECORDS SUMMARY | 2024-01-30 04:03 | External Medical Summary | Summary of Care ---
Author Name Unknown Organization [facility] Address [address] [place] [address] Phone [phone] Care Team Providers Care Claims Adjuster Supervisor Name Role Phone Pipo Neil DO Primary Care Provider [phone] Reason for Visit * Reason Comments Wound Care Right foot Encounter Details Date Type Department Care Team ([facility] st Contact Info) Description 01/26/2024 10:30 AM EDT Office Visit Wound Care, [facility] [address] [place], [place] [phone] Amna Mei, YON [address] [place] [address] Diabetic ulcer of right midfoot associated with [...] metoprolol succinate XL (TOPROL XL) 25 MG [id number]:HTN, goal below 140/90 TAKE TWO TABLETS BY [...] HCl 0.15 % Nasal Solution Administer 1 [place] into nostril in the morning and 1 [place] before bedtime. Active Meloxicam 7.5 MG Oral [...] original note were not included. W[facility] WOUND OUTPATIENT CONSULT Purvi Johnson is a [...] performed by Dorothy Nelson DO at OR [facility] EGD, FLEXIBLE, W/BIOPSY 09/09/2009 done non bleeding erosive gastropathy, mild chronic gastritis, negative HPylori, excessive gastric fluidsuspicious for gastroparesis LIGATE/CUT OVIDUCT(S) REMOVAL OF APPENDIX Appendectomy REMOVE TONSILS & ADENOIDS, AGE 12+ Tonsillectomy/Adenoids,12+ Y/O TOTAL ABD HYSTERECTOMY W/WO REMOVAL OF TUBE(S) TOTAL HYSTERECTOMY 2006 LVA[facility] per IRRIGATIONIST 2006 Social History: Social History Socioeconomic History Marital status: Spouse name: Carl Number of children: 1 Years of education: 12 Highest education level: Not on file Occupational History Occupation: senior business development analyst Employer: [employer] Tobacco Use Smoking status: Former Current packs/day: 0.00 Types: Cigarettes Quit date: 07/03/1989 Years since quittin.5 Smokeless tobacco: Never Substance and Sexual Activity Alcohol use: No Drug use: No Sexual activity: Yes Partners: Male control/protection: Surgical Other Topics Concern Not on file Social History Narrative . One child. One grandchild. Nee: GoodsonWilliam Loja is one of eight children. Mom was [place] and arthritis. Social Determinants of Health Financial [...] Endocrine Disorder Mother hyperchol Heart Disorder Mother [place], CABG x 5 Hypertension Mother Hypertension Father Blood Disorder Mother blood clots Stroke Father Other (MVA) Brother Cancer Sister lung Heart Disorder Brother Hypertension Brother No Past Hx Sister No Past Hx Brother No Past Hx Brother No Past Hx Brother Gastro-intestinal disorder Grandmother (Maternal) colon problems Heart Disorder Grandfather (Maternal) [place] Heart Disorder Grandmother (Paternal) [place] Other (Suicide) Grandfather (Paternal) Cancer Brother throat [...] 9:40 AM EDT Office Visit Wound Care, [facility] [address] [place] [address] [facility]na Mei DPM [address] [facility] [place] [address] Scheduled Procedures Name Priority Associated Diagnoses Date/Ti [...] Directives occurred with: Not Discussed Care Teams Claims Adjuster Supervisor Relationship Specialty Start Date End Date Pipo Neil DO [address] [place] [address] PCP - General Family Medicine 06/09/22 documented as of this encounter
--- OUTSIDE RECORDS SUMMARY | 2024-01-30 04:03 | External Medical Summary | Summary of Care ---
Author Name Unknown Organization [facility] Address [address] [place] [address] Phone [phone] Care Team Providers Care Ship Laborer Name Role Phone Pipo Neil DO Primary Care Provider [phone] Reason for Visit * Reason Comments Wound Care Right foot Encounter Details Date Type Department Care Team ([facility] st Contact Info) Description 01/26/2024 10:30 AM EDT Office Visit Wound Care, [facility] [address] [place], [place] [id number] Amna Mei, YON [address] [place] [address] Diabetic ulcer of right midfoot associated with [...] metoprolol succinate XL (TOPROL XL) 25 MG [id number]:HTN, goal below 140/90 TAKE TWO TABLETS BY [...] HCl 0.15 % Nasal Solution Administer 1 [place] into nostril in the morning and 1 [place] before bedtime. Active Meloxicam 7.5 MG Oral [...] original note were not included. [facility] [place] WOUND OUTPATIENT CONSULT Purvi Johnson is a [...] performed by Dorothy Nelson DO at OR [facility] EGD, FLEXIBLE, W/BIOPSY 09/09/2009 done non bleeding erosive gastropathy, mild chronic gastritis, negative HPylori, excessive gastric fluidsuspicious for gastroparesis LIGATE/CUT OVIDUCT(S) REMOVAL OF APPENDIX Appendectomy REMOVE TONSILS & ADENOIDS, AGE 12+ Tonsillectomy/Adenoids,13+ Y/O TOTAL ABD HYSTERECTOMY W/WO REMOVAL OF TUBE(S) TOTAL HYSTERECTOMY 2006 LVAH per END STAPLER 2006 Social History: Social History Socioeconomic History Marital status: Spouse name: Carl Number of children: 1 Years of education: 12 Highest education level: Not on file Occupational History Occupation: substance abuse clinician Employer: [employer] [address] Tobacco Use Smoking status: Former Current packs/day: 0.00 Types: Cigarettes Quit date: 07/03/1989 Years since quittin.5 Smokeless tobacco: Never Substance and Sexual Activity Alcohol use: No Drug use: No Sexual activity: Yes Partners: Male control/protection: Surgical Other Topics Concern Not on file Social History Narrative . One child. One grandchild. Nee: GoodsonWilliam Loja is one of eight children. Mom was [place] and arthritis. Social Determinants of Health Financial [...] Endocrine Disorder Mother hyperchol Heart Disorder Mother [place], CABG x 5 Hypertension Mother Hypertension Father Blood Disorder Mother blood clots Stroke Father Other (MVA) Brother Cancer Sister lung Heart Disorder Brother Hypertension Brother No Past Hx Sister No Past Hx Brother No Past Hx Brother No Past Hx Brother Gastro-intestinal disorder Grandmother (Maternal) colon problems Heart Disorder Grandfather (Maternal) [place] Heart Disorder Grandmother (Paternal) [place] Other (Suicide) Grandfather (Paternal) Cancer Brother throat [...] 9:40 AM EDT Office Visit Wound Care, [facility] [address] [place] [address] Amna Mei DPM [address] [facility] [place] [address] Scheduled Procedures Name Priority Associated Diagnoses Date/Ti [...] Directives occurred with: Not Discussed Care Teams Ship Laborer Relationship Specialty Start Date End Date Pipo Neil DO [address] [place] [address] PCP - General Family Medicine 06/09/22 documented as of this encounter
--- OUTSIDE RECORDS SUMMARY | 2024-01-30 04:03 | External Medical Summary | Summary of Care ---
Author Name Unknown Organization [facility] Address [address] [place] [address] Phone [phone] Care Team Providers Care Bottle Blower Name Role Phone Pipo Neil DO Primary Care Provider [phone] Reason for Visit * Reason Comments Wound Care Right foot Encounter Details Date Type Department Care Team ([facility] st Contact Info) Description 01/26/2024 10:30 AM EDT Office Visit Wound Care, [facility] [address] [place], [place] [phone] Amna Mei, YON [address] [place] [address] Diabetic ulcer of right midfoot associated with [...] metoprolol succinate XL (TOPROL XL) 25 MG [id number]:HTN, goal below 140/90 TAKE TWO TABLETS BY [...] HCl 0.15 % Nasal Solution Administer 1 [place] into nostril in the morning and 1 [place] before bedtime. Active Meloxicam 7.5 MG Oral [...] original note were not included. [facility] [place] WOUND OUTPATIENT CONSULT Purvi Johnson is a [...] performed by Dorothy Nelson DO at OR [facility] EGD, FLEXIBLE, W/BIOPSY 09/09/2009 done non bleeding erosive gastropathy, mild chronic gastritis, negative HPylori, excessive gastric fluidsuspicious for gastroparesis LIGATE/CUT OVIDUCT(S) REMOVAL OF APPENDIX Appendectomy REMOVE TONSILS & ADENOIDS, AGE 12+ Tonsillectomy/Adenoids,13+ Y/O TOTAL ABD HYSTERECTOMY W/WO REMOVAL OF TUBE(S) TOTAL HYSTERECTOMY 2006 LVAH per HOSE COUPLING JOINER 2006 Social History: Social History Socioeconomic History Marital status: Spouse name: Carl Number of children: 1 Years of education: 12 Highest education level: Not on file Occupational History Occupation: business services assistant Employer: [employer] Tobacco Use Smoking status: Former Current packs/day: 0.00 Types: Cigarettes Quit date: 07/03/1989 Years since quittin.5 Smokeless tobacco: Never Substance and Sexual Activity Alcohol use: No Drug use: No Sexual activity: Yes Partners: Male control/protection: Surgical Other Topics Concern Not on file Social History Narrative . One child. One grandchild. Nee: GoodsonWilliam Loja is one of eight children. Mom was [place] and arthritis. Social Determinants of Health Financial [...] Endocrine Disorder Mother hyperchol Heart Disorder Mother [place], CABG x 5 Hypertension Mother Hypertension Father Blood Disorder Mother blood clots Stroke Father Other (MVA) Brother Cancer Sister lung Heart Disorder Brother Hypertension Brother No Past Hx Sister No Past Hx Brother No Past Hx Brother No Past Hx Brother Gastro-intestinal disorder Grandmother (Maternal) colon problems Heart Disorder Grandfather (Maternal) [place] Heart Disorder Grandmother (Paternal) [place] Other (Suicide) Grandfather (Paternal) Cancer Brother throat [...] 9:40 AM EDT Office Visit Wound Care, [facility] [address] [place] [address] Amna Mei DPM [address] [facility] [place] [address] Scheduled Procedures Name Priority Associated Diagnoses Date/Ti [...] Directives occurred with: Not Discussed Care Teams Bottle Blower Relationship Specialty Start Date End Date Pipo Neil DO [address] [place] [address] PCP - General Family Medicine 06/09/22 documented as of this encounter
--- OUTSIDE RECORDS SUMMARY | 2024-01-30 04:04 | External Medical Summary | Summary of Care ---
Author Name Unknown Organization [facility] Address [address] [place] [address] Phone [phone] Care Team Providers Care Manager Hotel Name Role Phone Pipo Neil DO Primary Care Provider [phone] Reason for Visit * Reason Onset Date Comments Appointment 01/23/2024 Encounter Details Date Type Department Care Team ([facility] Contact Info) Description 01/23/2024 Telephone Podiatry, [facility] [address] [place] [address] Amna Mei DPM [address] [place] [address] Appointment Allergies Active Allergy Reactions Criticality Noted Date Comments Ampicillin 08/14/2001 , can take amoxil w/o problem Naproxen 05/05/2004 nausea Terconazole Other (Please comment) Medium 09/01/2009 Caused skin rash on perineum Hydrocodone-Acetaminoph en 12/02/2009 Severe nausea documented as of this encounter (statuses as of 01/23/2024) Medications Medication Sig Dispensed Refills Start Date [...] metoprolol succinate XL (TOPROL XL) 25 MG [id number]:HTN, goal below 140/90 TAKE TWO TABLETS BY [...] HCl 0.15 % Nasal Solution Administer 1 [place] into nostril in the morning and 1 [place] before bedtime. Active Meloxicam 7.5 MG Oral [...] Additional Information Patient not taking.Reported on 01/07/2024 documented as of this encounter (statuses as of 01/23/2024) Active Problems Problem Noted Date Diagnosed Date [...] as of this encounter (statuses as of 01/23/2024) Resolved Problems Problem Noted Date Diagnosed Date [...] as of this encounter (statuses as of 01/23/2024) Immunizations Name Administration Dates Next Due Seasonal Influenza, PF, 6 M & above, IM , (FluLaval or Fluzone) 03/12/2019,03/13/2018 Seasonal Influenza, Quadriva lent, No Preserve, IM 03/20/2017,03/31/2016,03/26/2015 Seasonal Influenza, Split, I IV3, With Preserve, Inj 04/03/2014,04/02/2013,03/17/2012, 0 11,04/07/2010,06/05/2007,05/09/2006 TDAP, Age 7 and older, IM (Adacel) [...] on file documented as of this encounter Miscellaneous Notes * Telephone Encounter - Linda Sim, SUPERVISOR PRODUCT INSPECTION - 01/23/2024 9:[address] Caruso called regarding the need for a more urgent appointment for pt. Addressing a new wound tothe right foot proximal 5th metatarsal area post injection by Dr. Mattson.Pt initially had an carol 01/31/24, Dr Mei can see the pt this Monday01/26/24 at 1030. This will be sent to the front end architect andscheduled accordingly. Pt is diabetic and has finished keflex and Clindamycin and has been prescribed another dose of Clindamycin. documented in this encounter Plan of Treatment Upcoming Encounters Date Type Department Care Team (Late st Contact Info) Description 01/26/2024 10:30 AM EDT Office Visit Wound Care, [facility] [address] [facility] [place] [address] Amna Mei, [facility] [address] [facility] [place] [phone] Scheduled Procedures Name Priority Associated Diagnoses Date/Ti me COLONOSCOPY FLEXIBLE PROXIMA L DIAGNOSTIC Recall Screening for colon cancer Health Maintenance Due Date Last Done Comments HIV Screening 01/22/1976 Albumin/Creatinine Ratio 1979 Cologuard 2006 Fecal Occult Blood Test 2006 Sigmoidoscopy 2006 Zoster Vaccines (1 of 2) 2011 Depression Screening 06/13/2019 06/13/2018 DTaP,Tdap,and Td Vaccines (2 - Td or Tdap) 09/02/2019 09/01/2009 GFR 07/29/2021 07/29/2020, 07/07/2018, 11/25/2017, Additional history exists Colonoscopy 01/23/2023 01/23/2013, 01/23/2013 Colorectal Cancer Screening 01/23/2023 COVID-19 Vaccine ( - season) 2023 05/15/2021, 09/11/2020 Diabetes Screening 07/29/2023 [...] Not on filedocumented as of this encounter Advance Directives * Full Code [...] Directives occurred with: Not Discussed Care Teams Manager Hotel Relationship Specialty Start Date End Date Pipo Neil DO [address] [facility] [place] [address] PCP - General Family Medicine 06/09/22 documented as of this encounter
--- OUTSIDE RECORDS SUMMARY | 2024-01-30 04:04 | External Medical Summary | Summary of Care ---
Author Name Unknown Organization [facility] Address [address] [place] [address] Phone [phone] Care Team Providers Care Front Desk Supervisor Name Role Phone Pipo Neil DO Primary Care Provider [phone] Reason for Visit * Reason Comments Wound Care Right foot Encounter Details Date Type Department Care Team ([facility] st Contact Info) Description 01/26/2024 10:30 AM EDT Office Visit Wound Care, [facility] [address] [place], [place] [phone] Amna Mei, YON [address] [place] [address] Diabetic ulcer of right midfoot associated with [...] metoprolol succinate XL (TOPROL XL) 25 MG [id number]:HTN, goal below 140/90 TAKE TWO TABLETS BY [...] HCl 0.15 % Nasal Solution Administer 1 [place] into nostril in the morning and 1 [place] before bedtime. Active Meloxicam 7.5 MG Oral [...] 01/26/2024) Immunizations Name Administration Dates Next Due Seasonal [...] this encounter Progress Notes * Amna Mei, DPM - 01/26/2024 11:03 AM EDT Images from the original note were not included. [facility] [place] WOUND OUTPATIENT CONSULT Purvi Johnson is a [...] performed by Dorothy Nelson DO at OR [facility] EGD, FLEXIBLE, W/BIOPSY 09/09/2009 done non bleeding erosive gastropathy, mild chronic gastritis, negative HPylori, excessive gastric fluidsuspicious for gastroparesis LIGATE/CUT OVIDUCT(S) REMOVAL OF APPENDIX Appendectomy REMOVE TONSILS & ADENOIDS, AGE 12+ Tonsillectomy/Adenoids,13+ Y/O TOTAL ABD HYSTERECTOMY W/WO REMOVAL OF TUBE(S) TOTAL HYSTERECTOMY 2006 LVAH per UNLOADER 2007 Social History: Social History Socioeconomic History Marital status: Spouse name: Carl Number of children: 1 Years of education: 12 Highest education level: Not on file Occupational History Occupation: agile business analyst Employer: [employer] Tobacco Use Smoking status: Former Current packs/day: 0.00 Types: Cigarettes Quit date: 07/03/1989 Years since quittin.5 Smokeless tobacco: Never Substance and Sexual Activity Alcohol use: No Drug use: No Sexual activity: Yes Partners: Male control/protection: Surgical Other Topics Concern Not on file Social History Narrative . One child. One grandchild. Nee: GoodsonWilliam Loja is one of eight children. Mom was [place] and arthritis. Social Determinants of Health Financial [...] Endocrine Disorder Mother hyperchol Heart Disorder Mother [place], CABG x 5 Hypertension Mother Hypertension Father Blood Disorder Mother blood clots Stroke Father Other (MVA) Brother Cancer Sister lung Heart Disorder Brother Hypertension Brother No Past Hx Sister No Past Hx Brother No Past Hx Brother No Past Hx Brother Gastro-intestinal disorder Grandmother (Maternal) colon problems Heart Disorder Grandfather (Maternal) [place] Heart Disorder Grandmother (Paternal) [place] Other (Suicide) Grandfather (Paternal) Cancer Brother throat [...] documented in this encounter Nursing Notes * Dayami So RN - 01/26/2024 10:34 AM EDT Wound occurred after a foot injection in October. Has been present and scabbed since December. Is currently taking Doxycycline and apply's Mupirocin cream documented in this encounter Plan of Treatment Upcoming Encounters Date Type Department Care Team (Late st Contact Info) Description 01/31/2024 9:40 AM EDT Office Visit Wound Care, [facility] [address] [facility] [place] [address] Amna Mei, [place] [address] [facility] [place] [address] Scheduled Procedures Name Priority Associated Diagnoses Date/Ti [...] 01/23/2013 Colorectal Cancer Screening 01/23/2023 COVID-19 Vaccine (3 - season) 2023 05/15/2021, 09/11/2020 Diabetes Screening [...] Directives occurred with: Not Discussed Care Teams Front Desk Supervisor Relationship Specialty Start Date End Date Pipo Neil DO [address] [place] [address] PCP - General Family Medicine 06/09/22 documented as of this encounter
--- NOTE | 2024-01-30 06:39 | Electrocardiogram Report ---
Test Reason : Blood Pressure : / mmHG Vent. Rate : 106 BPM Atrial Rate : 106 BPM P-R Int : 144 ms QRS Dur : 070 ms QT Int : 340 ms P-R-T Axes : 049 031 054 degrees QTc Int : 451 ms Sinus tachycardia Possible Left atrial enlargement Low voltage QRS Borderline ECG When compared with ECG of 15-NOV-2016 11:00, No significant change was found Confirmed by Papa Grove ([id number]) on 01/30/2024 6:39:02 AM Referred By: Confirmed By:[place]
--- NOTE | 2024-01-30 07:08 | XRay Report ---
XR chest 1V not portable HISTORY: 64 years-old Female Sepsis COMPARISON: 11/15/2016 TECHNIQUE: PA view of the chest FINDINGS: Cardiac silhouette appears normal. No pneumothorax or pleural effusion. The bones appear intact. Cerv ical spinal fusion hardware. IMPRESSION: No acute process. ACT 112: Negative or not required by law. The above report was generated using voice recognition software. It may contain grammatical, syntax o r spelling errors. Electronically signed by: Daryl Swanson M.D. 01/30/2024 7:07 AM
--- NOTE | 2024-01-30 07:22 | XRay Report ---
XR foot RT min 3V routine HISTORY: 64 years-old Female lateral pain/wound acute right foot pain with clinical concern for oste omyelitis COMPARISON: MRI right foot 01/30/2024 TECHNIQUE: 3 views of the right foot FINDINGS: Os peroneum. Minimal soft tissue swelling of the lateral forefoot. No acute fracture, dislocation or osseous erosion. Minimal osteoarthritis. Small to moderate sized calcaneal enthesophytes. 1.8 cm bone island of the third metatarsal neck. IMPRESSION: No acute osseous abnormality. ACT 112: Negative or not required by law. The above report was generated using voice recognition software. It may contain grammatical, syntax o r spelling errors. Electronically signed by: Daryl Swanson M.D. 01/30/2024 7:21 AM
[2024-01-30 07:34] LABS: Basophils # (auto) 0.06 K/uL (0.00-0.20); Basophils % (auto) 0.7 %; Eosinophils # (auto) 0.16 K/uL (0.00-0.50); Hematocrit (blood only) 41.8 % (37.0-47.0); Hemoglobin 13.5 g/dl (12.0-16.0); Immature Granulocytes # (auto) 0.03 K/uL (0.01-0.20); Immature Granulocytes % (auto) 0.4 %; Lymphocytes # (auto) 2.57 K/uL (1.20-3.40); Lymphocytes % (auto) 31.7 %; Mean Corpuscular Hemoglobin 30.1 pg (25.0-34.0); Mean Corpuscular Hgb Conc 32.3 g/dL (32.0-36.0); Mean Corpuscular Volume 93.3 fL (80.0-100.0); Mean Platelet Volume 10.7 fL (9.4-12.4); Monocytes # (auto) 0.78 K/uL (0.11-0.59); Monocytes % (auto) 9.6 %; Neutrophils # (auto) 4.52 K/uL (1.40-6.50); Neutrophils % (auto) 55.6 %; Platelet Count 227 K/uL (130-400); RDW Coefficient of Variation 13.5 % (11.5-14.5); RDW Standard Deviation 46.6 fL (36.4-46.3); Red Blood Count 4.48 M/uL (4.20-5.40); White Blood Count 8.12 K/ul (4.8-10.8)
[2024-01-30 07:48] LABS: Albumin Level 3.9 gm/dl (3.4-5.0); BUN Creatinine Ratio 27.3 (10-20); Calcium 8.9 mg/dl (8.6-10.3); Creatinine Clr Calc Pharmacy 62.8 ml/min; Est GFR (African American) 70.3 ml/min; Est GFR (Non-African American) 60.6 ml/min; Magnesium 2.2 mg/dl (1.7-2.4); Phosphorus 4.4 mg/dl (2.5-4.9); Potassium 4.1 mmol/L (3.5-5.1)
[2024-01-30] MEDS: INSULIN ASPART PER UNIT CHARGE SC SCH (08:28)
[2024-01-30 08:29] LABS: Estimated Average Glucose 134 mg/dl; Hemoglobin A1C 6.3 % (4.5-5.6)
[2024-01-30] MEDS: METOPROLOL SUCC 50MG EXT REL TAB PO SCH ×2 (08:45→18:41)
[2024-01-30] MEDS: CHOLECALCIFEROL 25 MCG (1000 UNITS) TAB PO SCH (08:45)
[2024-01-30] MEDS: KETOROLAC TROMETHAMINE 15 MG/ML VIAL IV PRN (08:46)
[2024-01-30] MEDS: CEROVITE ADV FORMULA TAB PO SCH (08:46)
[2024-01-30] MEDS: PIPERACILLIN/TAZOBACTAM 4.5 GM in DEXTROSE 5% MINI-B 100 ML IV SCH (08:46)
[2024-01-30] MEDS: PANTOprazole 40 MG TAB PO SCH (08:46)
[2024-01-30] MEDS ORDERED: EZETIMIBE 10 MG TAB PO SCH (09:00)
[2024-01-30] MEDS ORDERED: Nursing to Pharmacy Communication SCH ×2 (09:00→18:30)
[2024-01-30] MEDS ORDERED: metFORMIN HCL ER 500 MG TABCR PO SCH ×2 (09:00→21:00)
--- NOTE | 2024-01-30 09:46 | Pharmacy Report ---
Pharmacy PK ABX Note - Date of Service January 30, 2024 - Assessment and Plan Assessment 01/29: 64 year old F started on Vancomycin for treatment of R foot cellulitis/diabetic foot ulcer. Pertinent microbiologic data includes: Blood culture pending. Previously on clindamycin, Doxycycline and Keflex as outpatient for same infection . Day #1 of Vancomycin therapy. Plan Vancomycin * Loading dose: 1750 mg IV x 1 * Maintenance dose: 1000 mg IV every 12 hours * Regimen is predicted to achieve target AUC/TYLER of 400-600 mg/L.hr * Trough level ordered for: 01/31/24 at 11:00 am Pharmacy will continue to follow and will adjust dose/frequency as necessary. Thank you. Pharmacy has transitioned to AUC monitoring for vancomycin. AUC/TYLER is the preferred PK/PD target and is associated with decreased risk of nephrotoxicity compared to traditional trough targets.
[2024-01-30] MEDS: VANCOMYCIN HCL 1,000 MG in SODIUM CHLORIDE 0.9% 250 ML IV SCH (12:30)
--- NOTE | 2024-01-30 12:35 | Hospitalist Progress Note ---
Date of Service January 30, 2024 Assessment & Plan (1) Diabetic foot ulcer: Plan: cellulitis with ulcer and without evidence of osteomyelitis on MRI, noting cellulitis along the dorso lateral aspect of the 5th Right Metatarsal Pre hospital had been on antibiotics include 01/09 Keflex, 01/16 clindamycin, 01/12 doxycycline, pt feels issues started after steroid injection 10/23 , improved on Zosyn and Vancomycin, cultures negative to date (2) Diabetes mellitus type II, controlled: Plan: A1C is 6.3%- hold metformin not requiring coverage and pt refusing insulin per [place] Supervisor stop bsg checks and ssi (3) Hypertension: Plan: initial was concern for sepsis Hold hydrochlorothiazide, restart lisinopril 01/29 Continue metoprolol succinate Plan Anxiety/insomnia/neuropathy- Continue clonazepam 0.5 mg at bedtime Asthma- Continue usual inhalers Admission and Anticipated Discharge Date Admission Date: January 30, 2024 Subjective pt feels much improved but still with pain with ambulation no erythema or streaking , no fluctuance or purulence Physical Exam Physical Exam: area of eschar at right 5th met head with mild surrounding erythema prob 2 cm at most, much less tenderness according to pt no erythema to leg and little swelling Results & Data Results & Data Vital Signs (Past 12 Hours) Vital Signs Temp Pulse Resp BP Pulse Ox O2 Del Method 01/30/24 07:07 97.9 F 62 16 119/79 96 Room Air 01/30/24 02:34 97.9 F 77 16 118/75 96 Room Air Laboratory Results reviewed cbc reviewed chemistry updated at bedside PG Care Time/CCT Total # of Minutes Spent Total Time Spent with Patient: Total time spent is greater than 50% in coordination of care (as documented) at patient's floor/unit and/or counseling patient: Coding Level of Care Code 55489 SUB INP/OBS CARE 2/35MIN Diagnoses Diabetic foot ulcer E11.621; L97.509 Diabetes mellitus type II, controlled E11.9 Hypertension I10
[2024-01-30] MEDS: ACETAMINOPHEN 325 MG TAB PO PRN (14:03)
[2024-01-30] MEDS: lisinopril 5 MG TAB PO SCH ×2 (17:40→18:44)
[2024-01-30] MEDS: EZETIMIBE 10 MG TAB PO SCH (17:40)
[2024-01-30] MEDS: metFORMIN HCL ER 500 MG TABCR PO SCH (18:44)
[2024-01-30] MEDS: clonazePAM 0.5 MG TAB PO SCH (20:56)
[2024-01-30] MEDS ORDERED: METOPROLOL SUCC 50MG EXT REL TAB PO SCH (21:00)
[2024-01-31 07:52] LABS: Basophils # (auto) 0.04 K/uL (0.00-0.20); Basophils % (auto) 0.6 %; Eosinophils # (auto) 0.27 K/uL (0.00-0.50); Eosinophils % (auto) 3.9 %; Hematocrit (blood only) 36.8 % (37.0-47.0); Hemoglobin 12.3 g/dl (12.0-16.0); Immature Granulocytes # (auto) 0.03 K/uL (0.01-0.20); Immature Granulocytes % (auto) 0.4 %; Lymphocytes # (auto) 1.94 K/uL (1.20-3.40); Lymphocytes % (auto) 28.1 %; Mean Corpuscular Hemoglobin 30.8 pg (25.0-34.0); Mean Corpuscular Hgb Conc 33.4 g/dL (32.0-36.0); Monocytes # (auto) 0.54 K/uL (0.11-0.59); Monocytes % (auto) 7.8 %; Neutrophils # (auto) 4.08 K/uL (1.40-6.50); Neutrophils % (auto) 59.2 %; Platelet Count 218 K/uL (130-400); RDW Coefficient of Variation 13.3 % (11.5-14.5); RDW Standard Deviation 45.2 fL (36.4-46.3)
[2024-01-31 08:33] LABS: Albumin Level 3.6 gm/dl (3.4-5.0); BUN Creatinine Ratio 24.4 (10-20); Calcium 8.6 mg/dl (8.6-10.3); Est GFR (African American) 78.9 ml/min; Phosphorus 3.6 mg/dl (2.5-4.9); Potassium 4.7 mmol/L (3.5-5.1)
--- NOTE | 2024-01-31 11:57 | Pharmacy Report ---
Pharmacy PK ABX Note - Date of Service January 31, 2024 - Assessment and Plan Assessment 64 year old F started on Vancomycin for treatment of R foot cellulitis/diabetic foot ulcer. No evidence of osteomyelitis on MRI. Pertinent microbiologic data includes: Blood cultures x 2 show no growth to date. Previously on clindamycin, Doxycycline and Keflex as outpatient for same infection. PMH includes T2DM, which is well-controlled. Renal function stable at/near baseline. Day #2 of Vancomycin therapy. Plan Vancomycin * Current regimen: 1000 mg IV every 12 hours * Random level obtained 01/31/24 resulted as 10.3 mcg/mL. This is predicted to achieve target AUC/TYLER of 400-600 mg/L.hr * Predicted AUC at steady state: 479 mg/L.hr * Continue 1000 mg IV every 12 hours * Will repeat level in the next 48-72 hours if therapy is continued and/or change in patient clinical status Pharmacy will continue to follow and will adjust dose/frequency as necessary. Thank you. Pharmacy has transitioned to AUC monitoring for vancomycin. AUC/TYLER is the preferred PK/PD target and is associated with decreased risk of nephrotoxicity compared to traditional trough targets.
[2024-01-31] MEDS: hydroCHLOROthiazide 25 MG TAB PO STA (13:34)
--- NOTE | 2024-01-31 17:00 | Discharge Summary ---
Discharge Summary Date of Service January 31, 2024 Principal Dx & Hospital Course #1 = Principal Diagnosis (1) Diabetic foot ulcer: cellulitis with ulcer and without evidence of osteomyelitis on MRI, noting cellulitis along the dorso lateral aspect of the 5th Right Metatarsal Pre hospital had been on antibiotics include 01/09 Keflex, 01/16 clindamycin, 01/12 doxycycline, pt feels issues started after steroid injection 10/23 , improved on Zosyn and Vancomycin, cultures negative to date- will be discharged on Augmentin and Bactrim close podiatry follow up, I messaged Dr Yates prior to discharge (2) Diabetes mellitus type II, controlled: A1C is 6.3%- return to metformin not requiring coverage and pt refusing insulin per [employer] stop bsg checks and ssi (3) Hypertension: initial was concern for sepsis hydrochlorothiazide, lisinopril metoprolol succinate Plan Anxiety/insomnia/neuropathy- Continue clonazepam 0.5 mg at bedtime Asthma- Continue usual inhalers Notes For Next Care Provider Patient's Bactrim was limited due to concern for drug reaction. Patient needs to crush both medications. Patient will close outpatient follow-up with podiatry for wound inspection and further advice on wound care. Admission HPI Per Admitting Provider The patient is a 64-year-old female with a past medical history including diabetes mellitus type 2, bilateral heel pain, lumbar degenerative disc disease, chronic GERD, viral pneumonia, hypertension, hyperlipidemia, cervical spinal canal stenosis. She presents to the emergency department with symptoms and story as noted above. Discharge Exam area of eschar at right 5th met head with mild surrounding erythema prob 2 cm at most, continues to improve Updated Medication List Medication Instructions Recorded Confirmed Type cholecalciferol (vitamin D3) 25 1,000 units PO DAILY 05/07/19 01/29/24 History mcg (1,000 unit) capsule loratadine 10 mg tablet (Allergy 10 mg PO DAILY PRN Congestion 05/10/19 01/29/24 History Relief (loratadine)) triamcinolone acetonide 0.1 % 1 applic topical BID PRN FLARE UPS 12/12/22 01/29/24 History topical cream cyclobenzaprine 5 mg tablet 5 mg PO BID PRN muscle spasm #60 12/27/22 01/29/24 Rx tabs hydrochlorothiazide 12.5 mg capsule 12.5 mg PO DAILY #90 caps 05/29/23 01/29/24 Rx potassium chloride 8 mEq 8 meq PO DAILY #90 tabs 09/13/23 01/29/24 Rx tablet,extended release (Klor-Con) verio one touch strips #100 ea 09/25/23 01/23/24 Rx fluticasone propionate 50 2 spray intranasal DAILY PRN 11/08/23 01/29/24 Rx mcg/actuation nasal allergy symptoms #54.6 mL spray,suspension (Allergy Relief (fluticasone)) metformin 500 mg tablet,extended 500 mg PO DAILY #90 tabs 11/14/23 01/29/24 Rx release 24 hr lisinopril 5 mg tablet 5 mg PO BID #180 tabs 12/04/23 01/29/24 Rx metoprolol succinate 25 mg 50 mg (2 x 25 mg) PO DAILY #180 12/04/23 01/29/24 Rx tablet,extended release 24 hr tabs omeprazole 40 mg capsule,delayed 40 mg PO DAILY #90 caps 12/04/23 01/29/24 Rx release mometasone 100 mcg/actuation HFA 2 puff inhalation BID PRN 12/29/23 01/29/24 History aerosol inhaler (Asmanex HFA) Congestion ezetimibe 10 mg tablet (Zetia) 10 mg PO DAILY #30 tabs 01/13/24 01/29/24 Rx fluconazole 150 mg tablet 150 mg PO Q7D 2 doses #2 tabs 01/16/24 01/29/24 Rx clonazepam 0.5 mg tablet 0.5 mg PO HS #90 tabs 01/23/24 01/29/24 Rx albuterol sulfate 90 mcg/actuation 2 puff inhalation QID PRN 01/29/24 01/29/24 History aerosol inhaler Shortness Of Breath Or Wheezing multivitamin-ferrous 1 tab PO DAILY 01/29/24 01/29/24 History fumarate-folic acid 18 mg-400 mcg tablet (Complete Multivitamin-Multimineral) mupirocin 2 % topical ointment 1 applic topical BID PRN Skin 01/29/24 01/29/24 History Irritation amoxicillin 875 mg-potassium 1 tab PO BID #22 tabs 01/31/24 Rx clavulanate 125 mg tablet sulfamethoxazole 800 1 tab PO BID #10 tabs 01/31/24 Rx mg-trimethoprim 160 mg tablet (Bactrim DS) Hospital Stay Data Consultations 01/29/24 23:23 ED Decision to Admit Stat Diagnostic Imagining Performed 01/30/24 00:01 MRI Foot [MR foot RT w/o con] Routine US doppler leg [US arterial duplex LE RT] Routine Pending Results Patient Have Any Pending Studies at Discharge: Yes Discharge Instructions Given to Patient (Per Discharging Provider) please elevated your foot when resting keep dressing on and change as recommended, you will be having a phone call from the [facility] podiatry office, my nurse has messaged them to have a follow up as soon as able complete your antibiotics, you may crush them, they may not taste great so mix them in yogurt or applesauce or a liquid to take them Total Time Total Time Spent Total Time Spent (In Minutes): It required greater than 30 minutes to prepare this patient for discharge. Coding Level of Care Code 66773 INP/OBS DISCH >30 MIN Diagnoses Diabetic foot ulcer E11.621; L97.509 Diabetes mellitus type II, controlled E11.9 Hypertension I10
== END 2024-01-31 16:17 | disposition home or self-care (01) | DRG 638 ==
LOC: ED 18:03 → 3W 01-30 00:21 → SUATTDRO 01-30 00:21 → 3W 01-30 06:08